=== PATIENT | male | born 1960 | race Caucasian/White ===

== ENCOUNTER 2018-05-09 17:59 | Observation (INO) | payer OTHER ==
[~2018-05-09] VITALS: Ht 177.8 cm; Wt 79.5 kg
[2018-05-09 19:08] LABS: BASOPHILS ABSOLUTE AUTO 0.02 K/mm3 (0.00-0.23); BASOPHILS PERCENT AUTO 0 % (0-2); EOSINOPHILS ABSOLUTE AUTO 0.05 K/mm3 (0.00-0.68); EOSINOPHILS PERCENT AUTO 1 % (0-6); Hematocrit 43.4 % (37.0-53.0); Hemoglobin 13.4 g/dL (13.5-17.5); IMMATURE GRAN ABSOLUTE AUTO 0.01 K/mm3 (0.00-0.10); IMMATURE GRAN PERCENT AUTO 0 % (0-1); LYMPHOCYTES ABSOLUTE AUTO 1.17 K/mm3 (0.84-5.20); LYMPHOCYTES PERCENT AUTO 16 % (21-46); MONOCYTES PERCENT AUTO 5 % (4-13); Mean Corpuscular HGB 28.9 pg (26.0-34.0); Mean Corpuscular HGB Conc 30.9 g/dL (31.5-36.5); Mean Corpuscular Volume 94 fL (80-100); Mean Platelet Volume 11.6 fL (9.1-12.4); NEUTROPHILS ABSOLUTE AUTO 5.84 K/mm3 (1.96-9.15); NEUTROPHILS PERCENT AUTO 78 % (41-73); Platelet Count 230 K/mm3 (150-400); RDW Coefficient Variation 13.3 % (11.7-14.2); RDW Standard Deviation 45.2 fL (35.1-46.3); Red Blood Cell Count 4.64 M/mm3 (4.30-5.90); White Blood Cell Count 7.49 K/mm3 (4.00-11.30)
[2018-05-09] MEDS ORDERED: Lisinopril1 GM MC (19:13)
[2018-05-09] MEDS ORDERED: Lisinopril2.5 MG PO (19:14)
[2018-05-09] MEDS ORDERED: SERT25 PO (19:15)
[2018-05-09] MEDS ORDERED: FURO40 PO (19:15)
[2018-05-09] MEDS ORDERED: BASAGLAR K100 UNIT/1 SC (19:17)
[2018-05-09] MEDS ORDERED: CARV3.125 PO (19:17)
[2018-05-09] MEDS ORDERED: Humalog100 UNIT/1 SC (19:18)
[2018-05-09 19:21] LABS: Alanine Aminotransfer (ALT/SGP 63 U/L (12-78); Albumin, Blood 2.7 g/dL (3.4-5.0); Albumin/Globulin Ratio 0.6 (0.8-1.8); Alk Phos 400 U/L (50-136); Anion Gap 11 mmol/L (6-16); Aspartate Aminotrans (AST/SGOT 33 U/L (12-37); Bilirubin, Total 0.2 mg/dL (0.1-1.0); Blood Urea Nitrogen 19 mg/dL (8-24); Bun/Creatinine Ratio 18.6 (12.0-20.0); CO2, Blood 24 mmol/L (21-32); Calcium, Blood 8.2 mg/dL (8.5-10.1); Chloride, Blood 103 mmol/L (98-108); Creatinine, Blood 1.02 mg/dL (0.60-1.20); Globulin, Blood 4.2 g/dL (2.2-4.0); Glomerular Filtration Rate >60 (60-); Glucose, Blood 372 mg/dL (70-99); Potassium, Blood 4.4 mmol/L (3.5-5.5); Sodium, Blood 138 mmol/L (136-145); Total Protein, Blood 6.9 g/dL (6.4-8.2); Troponin I 0.066 ng/mL (0.000-0.040)
[2018-05-09] MEDS ORDERED: ATOR10 PO (22:06)
[2018-05-09 22:54] LABS: International Normalized Ratio 1.06; Prothrombin Time Results 10.9 Sec (9.7-11.5)
[2018-05-10 06:52] LABS: Hematocrit 39.9 % (37.0-53.0); Hemoglobin 12.5 g/dL (13.5-17.5)
[2018-05-10 07:10] LABS: Anion Gap 7 mmol/L (6-16); Blood Urea Nitrogen 22 mg/dL (8-24); Bun/Creatinine Ratio 20.4 (12.0-20.0); CO2, Blood 30 mmol/L (21-32); Calcium, Blood 8.1 mg/dL (8.5-10.1); Chloride, Blood 107 mmol/L (98-108); Creatinine, Blood 1.08 mg/dL (0.60-1.20); Glomerular Filtration Rate >60 (60-); Glucose, Blood 101 mg/dL (70-99); Potassium, Blood 4.3 mmol/L (3.5-5.5); Sodium, Blood 144 mmol/L (136-145)
[2018-05-10 11:49] LABS: International Normalized Ratio 1.1; Prothrombin Time Results 11.3 Sec (9.7-11.5)
[2018-05-10 14:09] LABS: International Normalized Ratio 1.1; Prothrombin Time Results 11.3 Sec (9.7-11.5)
[2018-05-11 05:36] LABS: International Normalized Ratio 1.44; Prothrombin Time Results 14.5 Sec (9.7-11.5)
[2018-05-11] MEDS ORDERED: ENOX80I SC (12:13)
[2018-05-11] MEDS ORDERED: WARF5 PO (12:14)
== END 2018-05-11 13:00 | disposition home or self-care (01) ==
LOC: ER 17:59 → MEDS 18:00 → ENPENDDIS 05-11 10:00 → MEDS 05-11 13:00
PROVIDERS: Emergency Medicine; Internal Medicine Cardiovascular Disease; Nurse Practitioner Acute Care
DX: R07.9 Chest pain, unspecified (principal); R79.89 Other specified abnormal findings of blood chemistry; R06.02 Shortness of breath; I42.9 Cardiomyopathy, unspecified; E11.9 Type 2 diabetes mellitus without complications; F17.220 Nicotine dependence, chewing tobacco, uncomplicated; Z95.1 Presence of aortocoronary bypass graft; Z79.899 Other long term (current) drug therapy; Z88.8 Allergy status to other drugs, medicaments and biological substances; Z23 Encounter for immunization
CPT/HCPCS: 36415; 71260; 80048; 80053; 82947; 83880; 84484; 85014; 85018; 85025; 85610; 90686; 93005; 93010; 96372; 96374; 96376; 99285-25; C8923; G0378; J1650; J1940; Q9957; Q9967

== ENCOUNTER 2018-07-19 14:10 | Observation (INO) | payer MEDICARE, OTHER ==
[~2018-07-19] VITALS: Ht 177.8 cm; Wt 89.3 kg
[~2018-07-19 14:10] MED LIST: ATOR10 PO; BASAGLAR K100 UNIT/1 SC; CARV3.125 PO; ENOX80I SC; FURO40 PO; Humalog100 UNIT/1 SC; Lisinopril1 GM MC; Lisinopril2.5 MG PO; SERT25 PO; WARF5 PO
[2018-07-19] MEDS ORDERED: INSULANPEN SC (14:46)
[2018-07-19] MEDS ORDERED: ENTRESTO 24 MG1 EACH (14:47)
[2018-07-19 14:57] LABS: BASOPHILS ABSOLUTE AUTO 0.02 K/mm3 (0.00-0.23); BASOPHILS PERCENT AUTO 0 % (0-2); EOSINOPHILS ABSOLUTE AUTO 0.12 K/mm3 (0.00-0.68); EOSINOPHILS PERCENT AUTO 1 % (0-6); Hematocrit 44.9 % (37.0-53.0); IMMATURE GRAN ABSOLUTE AUTO 0.03 K/mm3 (0.00-0.10); IMMATURE GRAN PERCENT AUTO 0 % (0-1); LYMPHOCYTES ABSOLUTE AUTO 1.69 K/mm3 (0.84-5.20); LYMPHOCYTES PERCENT AUTO 20 % (21-46); MONOCYTES ABSOLUTE AUTO 0.52 K/mm3 (0.16-1.47); MONOCYTES PERCENT AUTO 6 % (4-13); Mean Corpuscular HGB 28.2 pg (26.0-34.0); Mean Corpuscular HGB Conc 31.2 g/dL (31.5-36.5); Mean Corpuscular Volume 90 fL (80-100); Mean Platelet Volume 11.4 fL (9.1-12.4); NEUTROPHILS ABSOLUTE AUTO 6.22 K/mm3 (1.96-9.15); NEUTROPHILS PERCENT AUTO 72 % (41-73); Platelet Count 227 K/mm3 (150-400); RDW Coefficient Variation 14.1 % (11.7-14.2); RDW Standard Deviation 46.5 fL (35.1-46.3); Red Blood Cell Count 4.97 M/mm3 (4.30-5.90)
[2018-07-19 15:54] LABS: Alanine Aminotransfer (ALT/SGP 27 U/L (12-78); Albumin, Blood 2.8 g/dL (3.4-5.0); Albumin/Globulin Ratio 0.7 (0.8-1.8); Alk Phos 231 U/L (50-136); Anion Gap 6 mmol/L (6-16); Aspartate Aminotrans (AST/SGOT 25 U/L (12-37); Bilirubin, Total 0.5 mg/dL (0.1-1.0); Blood Urea Nitrogen 23 mg/dL (8-24); Bun/Creatinine Ratio 21.3 (12.0-20.0); CO2, Blood 29 mmol/L (21-32); Calcium, Blood 8.4 mg/dL (8.5-10.1); Chloride, Blood 108 mmol/L (98-108); Creatinine, Blood 1.08 mg/dL (0.60-1.20); Globulin, Blood 4.3 g/dL (2.2-4.0); Glomerular Filtration Rate >60 (60-); Glucose, Blood 110 mg/dL (70-99); Potassium, Blood 4.3 mmol/L (3.5-5.5); Sodium, Blood 143 mmol/L (136-145); Total Protein, Blood 7.1 g/dL (6.4-8.2); Troponin I 0.065 ng/mL (0.000-0.040)
[2018-07-19 16:36] LABS: International Normalized Ratio 2.06; Prothrombin Time Results 20.4 Sec (9.7-11.5)
[2018-07-19 22:27] LABS: Adenovirus Not Detected (NOT DETECT); Bordetella pertussis Not Detected (NOT DETECT); Chlamydophila pneumoniae Not Detected (NOT DETECT); Coronavirus 229E Not Detected (NOT DETECT); Coronavirus HKU1 Not Detected (NOT DETECT); Coronavirus NL63 Not Detected (NOT DETECT); Coronavirus OC43 Not Detected (NOT DETECT); Human Metapneumovirus Not Detected (NOT DETECT); Human Rhinovirus/Enterovirus Not Detected (NOT DETECT); Influenza A Not Detected (NOT DETECT); Influenza A/2009-H1 Not Detected (NOT DETECT); Influenza A/H1 Not Detected (NOT DETECT); Influenza A/H3 Not Detected (NOT DETECT); Influenza B Not Detected (NOT DETECT); Mycoplasma pneumoniae Not Detected (NOT DETECT); Parainfluenza Virus 1 Not Detected (NOT DETECT); Parainfluenza Virus 2 Not Detected (NOT DETECT); Parainfluenza Virus 3 Not Detected (NOT DETECT); Parainfluenza Virus 4 Not Detected (NOT DETECT); Respiratory Syncytial Virus Not Detected (NOT DETECT)
[2018-07-20 03:26] LABS: International Normalized Ratio 1.81
[2018-07-20 03:30] LABS: Anion Gap 7 mmol/L (6-16); Blood Urea Nitrogen 23 mg/dL (8-24); Bun/Creatinine Ratio 23.1 (12.0-20.0); CO2, Blood 27 mmol/L (21-32); Calcium, Blood 8.3 mg/dL (8.5-10.1); Chloride, Blood 108 mmol/L (98-108); Glomerular Filtration Rate >60 (60-); Glucose, Blood 120 mg/dL (70-99); Potassium, Blood 4.1 mmol/L (3.5-5.5); Sodium, Blood 142 mmol/L (136-145)
--- NOTE | 2018-07-20 07:12 | NUR ---
new pt, at bedside, 2L via nc to keep from alarming pulseox, saline locked, call light in reach, walking rounds completed with day shift, denied pain, wanted to know about procedure for going home
[2018-07-20 16:47] LABS: Total Protein, Blood 6.5 g/dL (6.4-8.2)
[2018-07-21 05:19] LABS: International Normalized Ratio 1.58; Prothrombin Time Results 16.1 Sec (9.7-11.5)
--- NOTE | 2018-07-21 07:22 | NUR ---
at side and in bed call light in reach, saline locked, 2L via nc, sbar report given to day shift
[2018-07-21 10:42] LABS: Lactate Dehydrogenase, Body Fl 58 U/L
[2018-07-21] MEDS ORDERED: GABA800 PO (12:52)
[2018-07-21] MEDS ORDERED: ATOR10 PO (12:52)
--- NOTE | 2018-07-21 15:46 | NUR ---
1340 PT DISCHARGED HOME VIA PERSONAL VEHICLE, ACCOMPANIED AND DRIVEN BY . PT AND ESCORTED VIA TWO W/C'S BY THIS RN AND CRYSTAL CALIBRATOR TO FACILITY ENTRANCE. IV REMOVED D/C PAPERWORK REVIEWED WITH PT AND COPY PROVIDED. NEW RX FAXED TO [facility] [address] PER PT REQUEST. PT DISCHARGED ON RA, NO O2 REQUIRED. TOLERATED THORACENESIS WELL. NO NEW CHANGES.
== END 2018-07-21 13:40 | disposition home or self-care (01) ==
LOC: ER 14:10 → MEDS 14:11 → ENPENDDIS 07-21 10:00 → MEDS 07-21 13:40
PROVIDERS: Emergency Medicine; Internal Medicine; Nurse Practitioner Acute Care; ADMIT Internal Medicine
DX: J96.01 Acute respiratory failure with hypoxia (principal); J98.11 Atelectasis; J90 Pleural effusion, not elsewhere classified; I11.0 Hypertensive heart disease with heart failure; I50.22 Chronic systolic (congestive) heart failure; R79.1 Abnormal coagulation profile; I25.10 Atherosclerotic heart disease of native coronary artery without angina pectoris; E11.42 Type 2 diabetes mellitus with diabetic polyneuropathy; F32.9 Major depressive disorder, single episode, unspecified; E78.5 Hyperlipidemia, unspecified; Z79.4 Long term (current) use of insulin; Z79.01 Long term (current) use of anticoagulants; Z86.79 Personal history of other diseases of the circulatory system; Z95.1 Presence of aortocoronary bypass graft; Z79.899 Other long term (current) drug therapy
CPT/HCPCS: 32555; 36415; 71045; 71046; 71260; 80048; 80053; 82947; 83615; 83735; 83880; 84155; 84157; 84484; 85025; 85610; 87070; 87205; 87486; 87581; 87633; 87798; 88108; 93005; 93010; 94761; 94762; 96374; 99285-25; G0378; J1940; Q9967

== ENCOUNTER 2019-08-23 15:10 | Inpatient (IN) | payer OTHER ==
[~2019-08-23] VITALS: Ht 177.8 cm; Wt 93.8 kg
[~2019-08-23 15:10] MED LIST changes: +ENTRESTO 24 MG1 EACH; +GABA800 PO; +INSULANPEN SC
[2019-08-23 15:54] LABS: BASOPHILS ABSOLUTE AUTO 0.06 K/mm3 (0.00-0.23); BASOPHILS PERCENT AUTO 0 % (0-2); EOSINOPHILS ABSOLUTE AUTO 0.01 K/mm3 (0.00-0.68); EOSINOPHILS PERCENT AUTO 0 % (0-6); Hematocrit 38.6 % (37.0-53.0); Hemoglobin 12.9 g/dL (13.5-17.5); IMMATURE GRAN ABSOLUTE AUTO 0.27 K/mm3 (0.00-0.10); IMMATURE GRAN PERCENT AUTO 2 % (0-1); LYMPHOCYTES ABSOLUTE AUTO 0.56 K/mm3 (0.84-5.20); LYMPHOCYTES PERCENT AUTO 4 % (21-46); MONOCYTES ABSOLUTE AUTO 0.47 K/mm3 (0.16-1.47); MONOCYTES PERCENT AUTO 3 % (4-13); Mean Corpuscular HGB 27.9 pg (26.0-34.0); Mean Corpuscular HGB Conc 33.4 g/dL (31.5-36.5); Mean Corpuscular Volume 83 fL (80-100); Mean Platelet Volume 12.7 fL (9.1-12.4); NEUTROPHILS ABSOLUTE AUTO 13.54 K/mm3 (1.96-9.15); NEUTROPHILS PERCENT AUTO 91 % (41-73); Platelet Count 303 K/mm3 (150-400); RDW Coefficient Variation 15.7 % (11.7-14.2); RDW Standard Deviation 47.7 fL (35.1-46.3); Red Blood Cell Count 4.63 M/mm3 (4.30-5.90); White Blood Cell Count 14.91 K/mm3 (4.00-11.30)
[2019-08-23 16:32] LABS: Prothrombin Time Results >90.0 Sec (9.7-11.5)
[2019-08-23 16:33] LABS: International Normalized Ratio No Calc
[2019-08-23 16:38] LABS: Albumin, Blood 2.1 g/dL (3.4-5.0); Albumin/Globulin Ratio 0.4 (0.8-1.8); Bilirubin, Total 4.1 mg/dL (0.1-1.0); Bun/Creatinine Ratio 25.1 (12.0-20.0); Calcium, Blood 8.5 mg/dL (8.5-10.1); Creatinine, Blood 2.79 mg/dL (0.60-1.20); Potassium, Blood 4.2 mmol/L (3.5-5.5); Total Protein, Blood 7.1 g/dL (6.4-8.2)
[2019-08-23] MEDS ORDERED: REPATHA SU140 MG/1 M SC ×2 (18:41)
[2019-08-23] MEDS ORDERED: WARF5 PO ×2 (18:42)
[2019-08-23] MEDS ORDERED: TORSE20 PO ×2 (18:43)
[2019-08-23] MEDS ORDERED: TOPROL XL25 MG PO ×2 (18:43)
[2019-08-23] MEDS ORDERED: SPIR25 PO ×2 (18:43)
[2019-08-23 19:17] LABS: BASOPHILS ABSOLUTE AUTO 0.06 K/mm3 (0.00-0.23); BASOPHILS PERCENT AUTO 0 % (0-2); EOSINOPHILS ABSOLUTE AUTO 0.01 K/mm3 (0.00-0.68); EOSINOPHILS PERCENT AUTO 0 % (0-6); Hematocrit 37.3 % (37.0-53.0); Hemoglobin 12.7 g/dL (13.5-17.5); IMMATURE GRAN ABSOLUTE AUTO 0.25 K/mm3 (0.00-0.10); IMMATURE GRAN PERCENT AUTO 2 % (0-1); LYMPHOCYTES ABSOLUTE AUTO 0.67 K/mm3 (0.84-5.20); LYMPHOCYTES PERCENT AUTO 5 % (21-46); MONOCYTES ABSOLUTE AUTO 0.52 K/mm3 (0.16-1.47); MONOCYTES PERCENT AUTO 4 % (4-13); Mean Corpuscular Volume 82 fL (80-100); Mean Platelet Volume 12.4 fL (9.1-12.4); NEUTROPHILS ABSOLUTE AUTO 12.87 K/mm3 (1.96-9.15); NEUTROPHILS PERCENT AUTO 90 % (41-73); NRBC ABSOLUTE 0.02 K/mm3 (0.00-0.02); NRBC Auto 0.1 /100 WBC (0.0-0.2); Platelet Count 278 K/mm3 (150-400); RDW Coefficient Variation 15.7 % (11.7-14.2); RDW Standard Deviation 47.3 fL (35.1-46.3); Red Blood Cell Count 4.54 M/mm3 (4.30-5.90); White Blood Cell Count 14.38 K/mm3 (4.00-11.30)
[2019-08-23 19:38] LABS: Prothrombin Time Results >90.0 Sec (9.7-11.5)
[2019-08-23 19:57] LABS: International Normalized Ratio No Calc
--- NOTE | 2019-08-23 21:30 | NUR ---
PATIENT REPORTS HE TAKES TORSEMIDE TWICE A DAY; WILL TAKE AN ADDITIONAL DOSE IF HIS LEGS ARE SWOLLEN.
[2019-08-23] MEDS ORDERED: Sulfamethoxazo1 EAC4 PO (21:36)
--- NOTE | 2019-08-23 23:04 | NUR ---
ASSUMED CARE OF PATIENT AT [facility] 1924 FROM ED RN; REPORT WAS CALLED BEFORE SHIFT CHANGE; REPORT WAS GIVEN TO DONALD Newman RN. PATIENT ARRIVED TO UNIT VIA STRETCHER; TRANSFER FROM ED TO PCU STRETCHER SBA; IMPAIRED GAIT DUE TO RIGHT FOOT WOUND. PATIENT REPORTS PAIN IN RIGHT FOOT WHEN STANDING. PATIENT DENIES PAIN, NUMBNESS, TINGLING, DIZZINESS OR NAUSEA. PATIENT HAD TWO IV ABX OVERDUE AND 2UNITS OF FFP TO BE GIVEN. ADMISSION COMPLETE. VSS. NSR ON TELE; OXYGEN SATURATION ABOVE 90% ON ROOM AIR. RIGHT LEG ELEVATED PER ORDER; PHOTO TAKEN OF WOUNDS. CALLED DR. MCCALL AT APPROXIMATELY 2300 TO REPORT PATIENT HAS DEVELOPED COUGH; FINE CRACKLES IN BASES AND O2 DROPPING TO 89 AT TIMES. PATIENT HAS NOT URINATED SINCE THIS AM; [facility] 1956 BNP; LACTIC DECREASING FROM 2.4 TO 2.1. ORDERS TO HOLD NS AT 75 FOR NOW; GIVEN 2MG IV BUMEX AND INSERT CATHETER. AND DAUGHTER AND OTHER FAMILY MEMBERS PRESENT. PATIENT CURRENTLY RESTING IN BED; CALL LIGHT IN REACH; BED IN LOWEST POSISTION; BED ALARM ON; WILL CONTINUE TO MONITOR AND ASSESS UNTIL END OF SHIFT.
--- NOTE | 2019-08-24 | NUR ---
URINARY CATH PLACED; 450 ANABEL FROTHY URINE OUTPUT.
[2019-08-24 00:25] LABS: Source, Urine Catheter
[2019-08-24 00:28] LABS: Blood, Urine 5+ (Neg); Glucose Qualitative, Urine 2+ (Neg); Ketones, Urine Neg (Neg); Leukocyte Esterase, Urine 1+ (Neg); Nitrite, Urine Neg (Neg); Protein, Urine 4+ (Neg); Urobilinogen, Urine 3+ (Normal)
[2019-08-24 00:32] LABS: Appearance, Urine Hazy (Clear); Bilirubin, Urine 2+ (Neg); Color, Urine Amber (P-Yellow)
[2019-08-24 00:37] LABS: Red Blood Cells, Urine 0-2 /hpf (0-2); White Blood Cells, Urine 0-2 /hpf (0-5)
[2019-08-24 00:38] LABS: Bun/Creatinine Ratio 24.8 (12.0-20.0); Calcium, Blood 8.2 mg/dL (8.5-10.1); Creatinine, Blood 2.86 mg/dL (0.60-1.20)
[2019-08-24 00:38] LABS: Amorphous Light (0-Heavy); Bacteria Few /hpf; Hyaline Casts 50-100 /lpf (0-2); Sodium, Urine, Random 14 mmol/L (20-110); Squamous Epithelial Cells Rare /hpf (Few)
[2019-08-24 00:41] LABS: Osmolality, Urine 350 mos/kg (15-1400)
[2019-08-24 04:28] LABS: BASOPHILS ABSOLUTE AUTO 0.08 K/mm3 (0.00-0.23); BASOPHILS PERCENT AUTO 1 % (0-2); EOSINOPHILS ABSOLUTE AUTO 0.07 K/mm3 (0.00-0.68); EOSINOPHILS PERCENT AUTO 1 % (0-6); Hematocrit 36.8 % (37.0-53.0); Hemoglobin 12.3 g/dL (13.5-17.5); IMMATURE GRAN ABSOLUTE AUTO 0.13 K/mm3 (0.00-0.10); IMMATURE GRAN PERCENT AUTO 1 % (0-1); LYMPHOCYTES ABSOLUTE AUTO 0.92 K/mm3 (0.84-5.20); LYMPHOCYTES PERCENT AUTO 7 % (21-46); MONOCYTES ABSOLUTE AUTO 0.69 K/mm3 (0.16-1.47); MONOCYTES PERCENT AUTO 5 % (4-13); Mean Corpuscular HGB 27.8 pg (26.0-34.0); Mean Corpuscular HGB Conc 33.4 g/dL (31.5-36.5); Mean Corpuscular Volume 83 fL (80-100); Mean Platelet Volume 11.8 fL (9.1-12.4); NEUTROPHILS ABSOLUTE AUTO 11.95 K/mm3 (1.96-9.15); NEUTROPHILS PERCENT AUTO 86 % (41-73); NRBC ABSOLUTE 0.04 K/mm3 (0.00-0.02); NRBC Auto 0.3 /100 WBC (0.0-0.2); Platelet Count 262 K/mm3 (150-400); RDW Coefficient Variation 15.9 % (11.7-14.2); RDW Standard Deviation 48.2 fL (35.1-46.3); Red Blood Cell Count 4.42 M/mm3 (4.30-5.90); White Blood Cell Count 13.84 K/mm3 (4.00-11.30)
[2019-08-24 04:45] LABS: Alanine Aminotransfer (ALT/SGP 51 U/L (12-78); Albumin, Blood 1.9 g/dL (3.4-5.0); Albumin/Globulin Ratio 0.4 (0.8-1.8); Alk Phos 880 U/L (50-136); Anion Gap 11 mmol/L (6-16); Aspartate Aminotrans (AST/SGOT 50 U/L (12-37); Bilirubin, Total 3.7 mg/dL (0.1-1.0); Blood Urea Nitrogen 73 mg/dL (8-24); CO2, Blood 22 mmol/L (21-32); Calcium, Blood 8.2 mg/dL (8.5-10.1); Chloride, Blood 93 mmol/L (98-108); Creatinine, Blood 2.81 mg/dL (0.60-1.20); Globulin, Blood 4.7 g/dL (2.2-4.0); Glomerular Filtration Rate 25 (60-); Glucose, Blood 199 mg/dL (70-99); Potassium, Blood 3.8 mmol/L (3.5-5.5); Sodium, Blood 126 mmol/L (136-145); Total Protein, Blood 6.6 g/dL (6.4-8.2); Vancomycin, Random 19.9 ug/mL
--- NOTE | 2019-08-24 06:26 | NUR ---
NO ACUTE CHANGES TO REPORT SINCE LAST NIGHT. PATIENT AMBULATED TO BATHROOM. NPO SINCE ADMIT. VSS. WILL CONTINUE TO MONITOR AND ASSESS UNTIL OF SHIFT.
[2019-08-24 09:11] LABS: International Normalized Ratio 1.93; Prothrombin Time Results 19.9 Sec (9.7-11.5)
[2019-08-24 09:13] LABS: Bun/Creatinine Ratio 26.6 (12.0-20.0); Calcium, Blood 8.2 mg/dL (8.5-10.1); Creatinine, Blood 2.67 mg/dL (0.60-1.20); Potassium, Blood 3.5 mmol/L (3.5-5.5)
[2019-08-24 13:24] LABS: Bun/Creatinine Ratio 27.1 (12.0-20.0); Calcium, Blood 8.3 mg/dL (8.5-10.1); Creatinine, Blood 2.55 mg/dL (0.60-1.20); Potassium, Blood 3.6 mmol/L (3.5-5.5)
--- NOTE | 2019-08-24 13:25 | NUR ---
AWAITING GLUCOSE READING
--- NOTE | 2019-08-24 14:34 | NUR ---
[address] with Dr. Ortiz; he will be in to see the pt this afternoon, he states.
[2019-08-24 17:12] LABS: Bun/Creatinine Ratio 28.3 (12.0-20.0); Calcium, Blood 8.3 mg/dL (8.5-10.1); Creatinine, Blood 2.33 mg/dL (0.60-1.20); Potassium, Blood 3.5 mmol/L (3.5-5.5)
--- NOTE | 2019-08-24 17:51 | NUR ---
History, Chart, Medications and Allergies reviewed before start of procedure.Patient confirms NPO status and agrees with scheduled surgery. VSS. EKG OBTAINED. REPORT GIVEN TO OR NURSE LUIS Fan
--- NOTE | 2019-08-24 18:49 | NUR ---
SHIFT NOTE PT IN DAY SURGERY NOW FOR AMUPATION OF RT LAST TOE. TOE HAD REMAINED UNWRAPPED FOR THIS SHIFT, SLIGHT ODOR WAS NOTED WHEN NOC SHIFT SOCK WAS REMOVED AFTER SOAKING TO REMOVE. ODOR HAS SINCE RESOLVED, TOE HAD DRIED. DR FORD INTO UPDATE PT'S AT THIS TIME, PT REMAINS IN RECOVERY. PT DR FROD PARTIAL REMOVAL OF LAST METATARSAL TOOKPLACE AND WOUND IS HALF OPEN BENEATH DRESSING
--- NOTE | 2019-08-24 19:31 | NUR ---
PT TO ROOM FROM PACU @1999. VSS STABLE. HUNGRY, FOOD PROVIDED PER ORDERS. DRESSING CDI. PT STANDS AND PIVOTS TO BED.
[2019-08-25 05:16] LABS: BASOPHILS ABSOLUTE AUTO 0.08 K/mm3 (0.00-0.23); BASOPHILS PERCENT AUTO 1 % (0-2); EOSINOPHILS PERCENT AUTO 1 % (0-6); Hematocrit 34.1 % (37.0-53.0); Hemoglobin 11.5 g/dL (13.5-17.5); IMMATURE GRAN ABSOLUTE AUTO 0.27 K/mm3 (0.00-0.10); IMMATURE GRAN PERCENT AUTO 2 % (0-1); LYMPHOCYTES ABSOLUTE AUTO 0.77 K/mm3 (0.84-5.20); LYMPHOCYTES PERCENT AUTO 5 % (21-46); MONOCYTES ABSOLUTE AUTO 0.52 K/mm3 (0.16-1.47); MONOCYTES PERCENT AUTO 3 % (4-13); Mean Corpuscular HGB 27.8 pg (26.0-34.0); Mean Corpuscular HGB Conc 33.7 g/dL (31.5-36.5); Mean Corpuscular Volume 83 fL (80-100); Mean Platelet Volume 12.2 fL (9.1-12.4); NEUTROPHILS ABSOLUTE AUTO 13.95 K/mm3 (1.96-9.15); NEUTROPHILS PERCENT AUTO 89 % (41-73); NRBC ABSOLUTE 0.02 K/mm3 (0.00-0.02); NRBC Auto 0.1 /100 WBC (0.0-0.2); Platelet Count 328 K/mm3 (150-400); RDW Coefficient Variation 15.9 % (11.7-14.2); RDW Standard Deviation 47.8 fL (35.1-46.3); Red Blood Cell Count 4.13 M/mm3 (4.30-5.90); White Blood Cell Count 15.69 K/mm3 (4.00-11.30)
--- NOTE | 2019-08-25 05:27 | NUR ---
END OF SHIFT SUMM VSS POS SURGER AND T/O SHIFT. DRESING TO R FOTT CDI. CAP REFILL REMAINS <3 SEC AND PT CONTINUS TO DENY NUMT. PAIN TO R FOOT TO WHICH ELVATION AND MEDICATION HAVE BEEN SUCCESFUL AT REDUCING. PT TOLERATING FOOD WELL. REMAINS AFEBRILE. BRISCOE PATENT AND DAINING, DARK ANABEL COLOR URINE. LUNGS SOUNDS DRY. HAS BEEN AT BEDSIDE T/O SHIFT. WILL CONTINUE TO MONITOR UNTIL SHIFT CHANGE.
[2019-08-25 05:35] LABS: Anion Gap 10 mmol/L (6-16); Blood Urea Nitrogen 63 mg/dL (8-24); Bun/Creatinine Ratio 29.3 (12.0-20.0); CO2, Blood 25 mmol/L (21-32); Calcium, Blood 7.8 mg/dL (8.5-10.1); Chloride, Blood 93 mmol/L (98-108); Creatinine, Blood 2.15 mg/dL (0.60-1.20); Glomerular Filtration Rate 34 (60-); Glucose, Blood 265 mg/dL (70-99); Sodium, Blood 128 mmol/L (136-145); Vancomycin, Random 1.5 ug/mL
[2019-08-25 09:25] LABS: International Normalized Ratio 1.79; Prothrombin Time Results 18.5 Sec (9.7-11.5)
--- NOTE | 2019-08-25 18:19 | NUR ---
SHIFT NOTE PT HAS BEEN RESTING WELL IN BED T/O THE VSS. PT A/O X4. 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 S/O REMAINS SLEEPING AT BEDSIDE. PT HAS BEEN STARTED ON HEPARIN AND COUMADIN TODAY, ALL HAVE BEEN STARTED, PLACED ON BLOOD THINNERS FOR PROPHALAXIS FOR BLOOD CLOTS, NO CLOT WAS NOTED ON ECHO BUT PT HAS RECENT THROMBUS TO CARDIAC APEX. WILL REMAIN ON HEPARIN UNTIL INR IS GREATER THAN 2, CURRENT INR IS 1.79.
[2019-08-25 23:26] LABS: Vancomycin, Random 22.2 ug/mL
--- NOTE | 2019-08-26 06:09 | NUR ---
ENDOF SHIFT SUMMARY NO ACUTE CHANGES THIS SHIFT. VSS. HEPARIN GTT CONTINUES TO INFUSE, TITRATED. NS COTINUES TO INFUSE. PAION MEDS ADMINISTERED FOR PAION IN SURGICAL SITE. ANA REMAINS PATENT, DARKAMBER URINE. OTHERWISE, PT'S SPOUSE IN ROOM T/O NIGHT AND PT HAS BEEN RESTING T/O NIGHT. WILL CONTINUE TO MONITOR UNTUIL SHIFT CHANGE.
[2019-08-26 08:36] LABS: BASOPHILS ABSOLUTE AUTO 0.09 K/mm3 (0.00-0.23); BASOPHILS PERCENT AUTO 1 % (0-2); EOSINOPHILS ABSOLUTE AUTO 0.14 K/mm3 (0.00-0.68); EOSINOPHILS PERCENT AUTO 1 % (0-6); Hemoglobin 11.9 g/dL (13.5-17.5); IMMATURE GRAN ABSOLUTE AUTO 0.83 K/mm3 (0.00-0.10); IMMATURE GRAN PERCENT AUTO 5 % (0-1); LYMPHOCYTES ABSOLUTE AUTO 1.49 K/mm3 (0.84-5.20); LYMPHOCYTES PERCENT AUTO 9 % (21-46); MONOCYTES ABSOLUTE AUTO 0.69 K/mm3 (0.16-1.47); MONOCYTES PERCENT AUTO 4 % (4-13); Mean Corpuscular HGB 27.5 pg (26.0-34.0); Mean Corpuscular HGB Conc 33.1 g/dL (31.5-36.5); Mean Corpuscular Volume 83 fL (80-100); Mean Platelet Volume 11.8 fL (9.1-12.4); NEUTROPHILS ABSOLUTE AUTO 14.03 K/mm3 (1.96-9.15); NEUTROPHILS PERCENT AUTO 81 % (41-73); NRBC ABSOLUTE 0.02 K/mm3 (0.00-0.02); NRBC Auto 0.1 /100 WBC (0.0-0.2); Platelet Count 394 K/mm3 (150-400); RDW Coefficient Variation 16.4 % (11.7-14.2); RDW Standard Deviation 49.3 fL (35.1-46.3); Red Blood Cell Count 4.33 M/mm3 (4.30-5.90); White Blood Cell Count 17.27 K/mm3 (4.00-11.30)
[2019-08-26 08:51] LABS: International Normalized Ratio 2.19; Prothrombin Time Results 22.4 Sec (9.7-11.5)
[2019-08-26 08:55] LABS: Bun/Creatinine Ratio 29.1 (12.0-20.0); Calcium, Blood 7.9 mg/dL (8.5-10.1); Creatinine, Blood 1.41 mg/dL (0.60-1.20); Potassium, Blood 3.6 mmol/L (3.5-5.5)
[2019-08-26 09:08] LABS: Vancomycin, Random 16.6 ug/mL
--- NOTE | 2019-08-26 18:37 | NUR ---
PCU DAYSHIFT NOTE PATIENT ALERT AND ORIENTED X4. AT BEDSIDE, WITH TERMINAL CANCER DX, T/O SHIFT- AIDS IN PATIENT CARE. PATIENT RIGHT FOOT ELEVATED T/O SHIFT - REDNESS, WARM TO TOUCH AND SWELLING WITH INDENTS NOTED TO RIGHT LEG/CALF - MD ABAD NOTIFIED. PATIENT HAD BLE ARTERIAL STUDY COMPELTED . PATIENT MED NO TELE STATUS. RESP E/U ON ROOM AIR. PATIENT HAS BRISCOE CATH IN PLACE, DRAINING ANABEL URINE. NO ACUTE CHANGES T/O SHIFT. WILL CONTINUE TO MONITOR AND GIVE REPORT TO NOC SHIFT RN.
--- NOTE | 2019-08-26 19:43 | NUR ---
RECIEVED HAND OFF FROM Ketan DON RN USING SBAR. TRANSPORTED TO ROOM 220 VIA PCU BED. PCU BED EXCHANGED WITH SURGICAL BED. AAO X3, WEAVER, FOLLOWS ALL COMMANDS. ORIENTED TO ROOM, CALL SYSTEM, AND POC, VOICES UNDERSTANIDNG. PATIENT ALERT AND ORIENTED X4. , DAUGHTER, AND GRANDCHILDREN AT BEDSIDE. RESPIRATIONS EVEN AND UNLABORD ON ROOM AIR. LUNG SOUNDS CLEAR BILTAERALLY. ABDOMEN SOFT AND NONDISTENDED. BOWEL SOUNDS PRESENT IN ALL QUADS. PATIENT RIGHT FOOT ELEVATED ON PILLOWS FOR COMFORT, DRESSING IS C/D/I. REDNESS, WARMTH AND EDEMA WITH INDENTIONS NOTED, MD AWARE. BLE ARTERIAL STUDY COMPELTED BEFORE TX TO SURG. WILL PLACE WOUND VAC PER MD ORDERS. BRISCOE CATH IS PATENT, DRAINING CLEAR ANABEL URINE TO GRAVITY. SAFETY MEASURES IN PLACE. WILL CONTINUE TO MONITOR.
--- NOTE | 2019-08-26 21:14 | NUR ---
PLACED WOUND VAC REMOVED PREVIOUS DRESSING AND PACKING FROM RIGHT LATERAL FOOT. NO DRAINAGE OR ODOR NOTED. PLACED BLACK FOAM AND PACKED INTO WOUND (KATHLEEN+NEWHEW WOUND VAC DOES NOT HAVE WHITE FOAM OR EQUIVELANT) AND COVERED WITH SUCTION WAFER AND SECURED WITH OPTSITE. PLACED ON CONT SUCTION. PT TOLERATED WELL. ELEVATED EXTREMITY.
--- NOTE | 2019-08-27 06:30 | NUR ---
SHIFT SUMMARY HAS RESTED WELL THIS SHIFT. FOOT STILL PROPED ON PILLOW, WOULD VAC IN PLACE AND WORKING PROPERLY. PAIN WELL MANAGED WITH PRN FENTANYL GIVEN X2 THIS SHIFT. HAS DENIED FURTHER DISCOMFORT, OR OTHER NEEDS. SAFETY MEASURES IN PLACE. WILL GIVE HAND OFF TO ONCOMING SHIFT USING SBAR DURING BEDSIDE REPORT.
[2019-08-27 08:47] LABS: BASOPHILS ABSOLUTE AUTO 0.09 K/mm3 (0.00-0.23); BASOPHILS PERCENT AUTO 1 % (0-2); EOSINOPHILS ABSOLUTE AUTO 0.11 K/mm3 (0.00-0.68); EOSINOPHILS PERCENT AUTO 1 % (0-6); Hematocrit 36.4 % (37.0-53.0); Hemoglobin 12.1 g/dL (13.5-17.5); IMMATURE GRAN ABSOLUTE AUTO 0.72 K/mm3 (0.00-0.10); IMMATURE GRAN PERCENT AUTO 4 % (0-1); LYMPHOCYTES ABSOLUTE AUTO 1.35 K/mm3 (0.84-5.20); LYMPHOCYTES PERCENT AUTO 8 % (21-46); MONOCYTES PERCENT AUTO 4 % (4-13); Mean Corpuscular HGB 28.3 pg (26.0-34.0); Mean Corpuscular HGB Conc 33.2 g/dL (31.5-36.5); Mean Corpuscular Volume 85 fL (80-100); Mean Platelet Volume 11.2 fL (9.1-12.4); NEUTROPHILS ABSOLUTE AUTO 14.96 K/mm3 (1.96-9.15); NEUTROPHILS PERCENT AUTO 84 % (41-73); NRBC ABSOLUTE 0.02 K/mm3 (0.00-0.02); NRBC Auto 0.1 /100 WBC (0.0-0.2); Platelet Count 457 K/mm3 (150-400); RDW Standard Deviation 52.3 fL (35.1-46.3); Red Blood Cell Count 4.28 M/mm3 (4.30-5.90); White Blood Cell Count 17.93 K/mm3 (4.00-11.30)
[2019-08-27 09:13] LABS: Bun/Creatinine Ratio 24.6 (12.0-20.0); Calcium, Blood 8.2 mg/dL (8.5-10.1); Creatinine, Blood 1.38 mg/dL (0.60-1.20); Potassium, Blood 3.8 mmol/L (3.5-5.5)
[2019-08-27 10:42] LABS: International Normalized Ratio 2.67
--- NOTE | 2019-08-27 13:06 | NUR ---
08/27/19 Pt gave this rfp writer permission to be involved in care 08/28/19 0600 to 1200
--- NOTE | 2019-08-27 16:29 | NUR ---
SHIFT SUMMARY PT EATING AND DRINKING. PT BEEN ASSISTED WITH ADL'S PRN. PT RACHNA PITTS'Sreedhar RECENTLY. PT REPORTS NOT HAVING BM FOR SEVERAL DAYS. DISCUSSED WITH , SEE ORDERS. PT BEEN MED PRN PAIN. PT BEEN HAVING NAPS OFF AND ON TODAY. PT CONT TO HAVE WOUND VAC IN PLACE. CONSULT WAS CALLED TODAY FOR DR GOODMAN TO HIS OFFICE.
--- NOTE | 2019-08-27 16:37 | NUR ---
STUDENT REQUESTED PERMISSION TO CARE FOR PATIENT ON 08/28/2019. PATIENT AGREES.
--- NOTE | 2019-08-27 17:45 | NUR ---
DR GOODMAN HERE TO SEE PT.
--- NOTE | 2019-08-27 18:26 | NUR ---
DISCUSSED BOWEL CARE. PT REPORTS WILL REQ TO HAVE MIRALAX AT BEDTIME, DOES NOT WANT IT WITH DINNER.
--- NOTE | 2019-08-28 03:56 | NUR ---
SHIFT SUMMARY PT IS A/O X4. PT HAS AMBULATED THIS SHIFT; WBAT. WOUND VAC IN PLACE R FOOT. PT DID HAVE SOME SHORTNESS OF BREATH/ DIFFICULTY GETTING DEEP BREATHS; HOSPITALIST WAS NOTIFIED AND MEDS ORDERED. PT HAS BEEN BREATHING EASIER AFTER BREATHING TREATMENT AND LASIX. PT TOLERATING PO INTAKE, VOIDING, PASSING GAS. NO BM THIS SHIFT. PT GIVEN MIRALAX PER ORDER. ASSISTED WITH ADL'S PRN.
[2019-08-28 05:09] LABS: BASOPHILS ABSOLUTE AUTO 0.08 K/mm3 (0.00-0.23); BASOPHILS PERCENT AUTO 0 % (0-2); EOSINOPHILS ABSOLUTE AUTO 0.13 K/mm3 (0.00-0.68); EOSINOPHILS PERCENT AUTO 1 % (0-6); Hemoglobin 11.3 g/dL (13.5-17.5); IMMATURE GRAN ABSOLUTE AUTO 0.64 K/mm3 (0.00-0.10); IMMATURE GRAN PERCENT AUTO 3 % (0-1); LYMPHOCYTES ABSOLUTE AUTO 1.02 K/mm3 (0.84-5.20); LYMPHOCYTES PERCENT AUTO 5 % (21-46); MONOCYTES PERCENT AUTO 3 % (4-13); Mean Corpuscular HGB 27.9 pg (26.0-34.0); Mean Corpuscular HGB Conc 33.2 g/dL (31.5-36.5); Mean Corpuscular Volume 84 fL (80-100); Mean Platelet Volume 11.2 fL (9.1-12.4); NEUTROPHILS ABSOLUTE AUTO 18.16 K/mm3 (1.96-9.15); NEUTROPHILS PERCENT AUTO 88 % (41-73); Platelet Count 449 K/mm3 (150-400); RDW Coefficient Variation 16.7 % (11.7-14.2); RDW Standard Deviation 50.1 fL (35.1-46.3); Red Blood Cell Count 4.05 M/mm3 (4.30-5.90); White Blood Cell Count 20.63 K/mm3 (4.00-11.30)
[2019-08-28 05:21] LABS: International Normalized Ratio 3.51
[2019-08-28 05:25] LABS: Bun/Creatinine Ratio 25.2 (12.0-20.0); Calcium, Blood 8.1 mg/dL (8.5-10.1); Creatinine, Blood 1.31 mg/dL (0.60-1.20)
--- NOTE | 2019-08-28 11:04 | NUR ---
DR HERNANDEZ HERE TO SEE PT RECENTLY, DISCUSSED PT'S STATUS INCLUDING NAUSEA, BOWEL CARE.
--- NOTE | 2019-08-28 17:00 | NUR ---
SHIFT SUMMARY PT EATING SMALL AMTS, DRINKING, VOIDING. PT BEEN ASSISTED WITH ADL'S PRN. PT UP THIS AFTERNOON IN W/C WITH STUDENT NURSE. PT UP TO CHAIR AFTER THAT. PO WATER INTAKE BEEN ENC. PT REPORTS FEELING THAT HE WILL HAVE BM SOON.
[2019-08-28 20:31] LABS: Albumin, Blood 1.8 g/dL (3.4-5.0); Albumin/Globulin Ratio 0.3 (0.8-1.8); Bilirubin, Direct 6.2 mg/dL (0.0-0.3); Bilirubin, Indirect 0.6 mg/dL (0.1-0.7); Bilirubin, Total 6.8 mg/dL (0.1-1.0); Globulin, Blood 5.6 g/dL (2.2-4.0); Total Protein, Blood 7.4 g/dL (6.4-8.2)
--- NOTE | 2019-08-28 23:27 | NUR ---
PATIENT AND MOVED TO ROOM 210. ALL BELONGINGS MOVED WITH PT. PATIENT'S SKIN IS A NOTICABLE TONE OF YELLOW/ORANGE. FAMILY STATES THAT THIS IS NOT NORMAL. STATED THAT SHE HAD NOT BEEN IN IN THE PAST 2 DAYS AND THAT THIS IS NEW. LABEL MACHINE OPERATOR LOLA RUBALCAVA NOTIFIED OF CHANGES AND LFT's WERE DRAWN. NO OTHER ORDERS AT THIS TIME. PAIN MEDICATION PER EMAR.
[2019-08-29 05:41] LABS: BASOPHILS ABSOLUTE AUTO 0.09 K/mm3 (0.00-0.23); BASOPHILS PERCENT AUTO 0 % (0-2); EOSINOPHILS ABSOLUTE AUTO 0.13 K/mm3 (0.00-0.68); EOSINOPHILS PERCENT AUTO 1 % (0-6); Hematocrit 35.8 % (37.0-53.0); Hemoglobin 11.6 g/dL (13.5-17.5); IMMATURE GRAN ABSOLUTE AUTO 0.67 K/mm3 (0.00-0.10); IMMATURE GRAN PERCENT AUTO 3 % (0-1); LYMPHOCYTES ABSOLUTE AUTO 1.34 K/mm3 (0.84-5.20); LYMPHOCYTES PERCENT AUTO 6 % (21-46); MONOCYTES ABSOLUTE AUTO 0.64 K/mm3 (0.16-1.47); MONOCYTES PERCENT AUTO 3 % (4-13); Mean Corpuscular HGB 27.7 pg (26.0-34.0); Mean Corpuscular HGB Conc 32.4 g/dL (31.5-36.5); Mean Corpuscular Volume 85 fL (80-100); Mean Platelet Volume 11.2 fL (9.1-12.4); NEUTROPHILS ABSOLUTE AUTO 20.58 K/mm3 (1.96-9.15); NEUTROPHILS PERCENT AUTO 88 % (41-73); NRBC ABSOLUTE 0.02 K/mm3 (0.00-0.02); NRBC Auto 0.1 /100 WBC (0.0-0.2); Platelet Count 526 K/mm3 (150-400); RDW Standard Deviation 50.2 fL (35.1-46.3); Red Blood Cell Count 4.19 M/mm3 (4.30-5.90); White Blood Cell Count 23.45 K/mm3 (4.00-11.30)
--- NOTE | 2019-08-29 05:54 | NUR ---
nO ACUTE CHANGES. PATIENT STATED THAT HE SLEPT WELL. IN ROOM ON A COT ALL NIGHT.
[2019-08-29 06:02] LABS: Bun/Creatinine Ratio 22.8 (12.0-20.0); Calcium, Blood 8.4 mg/dL (8.5-10.1); Creatinine, Blood 1.49 mg/dL (0.60-1.20); Potassium, Blood 3.9 mmol/L (3.5-5.5)
[2019-08-29 06:21] LABS: Prothrombin Time Results 40.8 Sec (9.7-11.5)
[2019-08-29 06:45] LABS: International Normalized Ratio 4.13
--- NOTE | 2019-08-29 17:18 | NUR ---
WOUND VAC DRESSING CHANGED TO RIGHT FOOT. 1 PIECE OF BLACK FOAM PLACED. SEAL ACHIEVED. NO ODOR OR DRAINAGE NOTED
--- NOTE | 2019-08-29 17:47 | NUR ---
summary patient denies pain or nause, up in room to chair and ambulating to bathroom. wound vac in place to right foot and maintaining pressure. no drainage in wound vac. patients so at bedside throughout shift
[2019-08-30 02:11] LABS: HBSAG SCREEN Negative (Negative); HEP A AB, IGM Negative (Negative); HEP B CORE AB, IGM Negative (Negative); HEP C VIRUS AB <0.1 (0.0-0.9)
--- NOTE | 2019-08-30 04:14 | NUR ---
SHIFT SUMMARY POD 6 R SMALL TOE AMPUTATION AA0X4, VSS. WOUND VAC ON SET TO 120. NO DRAINAGE IN TUBE. PT C/O PAIN X1 DURING SHIFT. HAS BEEN RESTING IN BED T/O SHIFT. GETTING UP TO VOID IND IN ROOM. TOLERATING PO WELL. IN ROOM DURING SHIFT
[2019-08-30 06:34] LABS: Albumin, Blood 1.7 g/dL (3.4-5.0); Albumin/Globulin Ratio 0.3 (0.8-1.8); Bilirubin, Total 6.3 mg/dL (0.1-1.0); Bun/Creatinine Ratio 24.3 (12.0-20.0); Calcium, Blood 8.5 mg/dL (8.5-10.1); Creatinine, Blood 1.77 mg/dL (0.60-1.20); Globulin, Blood 5.5 g/dL (2.2-4.0); Potassium, Blood 4.6 mmol/L (3.5-5.5); Total Protein, Blood 7.2 g/dL (6.4-8.2)
[2019-08-30 06:44] LABS: International Normalized Ratio 1.37; Prothrombin Time Results 14.4 Sec (9.7-11.5)
--- NOTE | 2019-08-30 18:39 | NUR ---
SUMMARY NO ACUTE CHANGES T/O SHIFT. DR FORD IN TO SEE PT THIS EVENING. WOUND VAC SO CHANGED SO DR STOREY COULD ASSESS. PHOTOS AND MEASUREMENTS TAKEN. IV FLUIDS RUNNING PER ORDERS. CALL LIGHT IN REACH. SO AT BEDSIDE.
--- NOTE | 2019-08-31 04:19 | NUR ---
SHIFT SUMMARY AA0X4, VSS. PT AMBULATING IN ROOM IND. WOUND VAC IN PLACE, FOAM COMPRESSED SET TO 120. PT HAS BEEN RESTING IN BED T/O SHIFT. DID NOT GET MUCH SLEEP PER PT. REPORTS MINIMAL PAIN DURING SHIFT. CALLED INTO PT ROOM DURING SHIFT, PT HAVING RED CLOT OUT OF HIS NOSE. PT REPORTED HAPPENING MULTIPLE TIMES BUT HE DIDNT TELL ANYONE. NO BLEEDING SEEN ELSEWHERE AFTER PASSING THE CLOT. PT VOIDING AND TOLERATING PO WELL.
[2019-08-31 06:14] LABS: BASOPHILS ABSOLUTE AUTO 0.08 K/mm3 (0.00-0.23); BASOPHILS PERCENT AUTO 0 % (0-2); EOSINOPHILS ABSOLUTE AUTO 0.15 K/mm3 (0.00-0.68); EOSINOPHILS PERCENT AUTO 1 % (0-6); Hematocrit 37.5 % (37.0-53.0); Hemoglobin 12.3 g/dL (13.5-17.5); IMMATURE GRAN ABSOLUTE AUTO 0.52 K/mm3 (0.00-0.10); IMMATURE GRAN PERCENT AUTO 2 % (0-1); LYMPHOCYTES ABSOLUTE AUTO 1.71 K/mm3 (0.84-5.20); LYMPHOCYTES PERCENT AUTO 8 % (21-46); MONOCYTES ABSOLUTE AUTO 0.66 K/mm3 (0.16-1.47); MONOCYTES PERCENT AUTO 3 % (4-13); Mean Corpuscular HGB 28.7 pg (26.0-34.0); Mean Corpuscular HGB Conc 32.8 g/dL (31.5-36.5); Mean Corpuscular Volume 87 fL (80-100); Mean Platelet Volume 10.7 fL (9.1-12.4); NEUTROPHILS ABSOLUTE AUTO 18.41 K/mm3 (1.96-9.15); NEUTROPHILS PERCENT AUTO 86 % (41-73); NRBC ABSOLUTE 0.05 K/mm3 (0.00-0.02); NRBC Auto 0.2 /100 WBC (0.0-0.2); Platelet Count 630 K/mm3 (150-400); RDW Coefficient Variation 18.6 % (11.7-14.2); RDW Standard Deviation 52.7 fL (35.1-46.3); Red Blood Cell Count 4.29 M/mm3 (4.30-5.90); White Blood Cell Count 21.53 K/mm3 (4.00-11.30)
[2019-08-31 06:27] LABS: International Normalized Ratio 1.27; Prothrombin Time Results 13.4 Sec (9.7-11.5)
[2019-08-31 06:53] LABS: Albumin, Blood 1.8 g/dL (3.4-5.0); Albumin/Globulin Ratio 0.3 (0.8-1.8); Bilirubin, Total 5.9 mg/dL (0.1-1.0); Bun/Creatinine Ratio 24.6 (12.0-20.0); Calcium, Blood 8.9 mg/dL (8.5-10.1); Creatinine, Blood 1.83 mg/dL (0.60-1.20); Potassium, Blood 3.7 mmol/L (3.5-5.5); Total Protein, Blood 7.8 g/dL (6.4-8.2)
[2019-08-31] MEDS ORDERED: SENN187 PO ×2 (11:18)
[2019-08-31] MEDS ORDERED: ATOR20 PO ×2 (11:19)
--- NOTE | 2019-08-31 14:32 | NUR ---
1420 discharged to home accompaned by nette.wound vac in place and maintaining seal
[2019-10-03] MEDS ORDERED: TRIA15CR3 TOP (15:43)
[2019-10-03] MEDS ORDERED: NITR.4SL SL (15:43)
[2019-10-03] MEDS ORDERED: ZOFRAN8 MG PO (15:44)
[2019-10-03] MEDS ORDERED: Norco 5-325 Ta1 EACH PO (15:45)
== END 2019-08-31 14:16 | disposition home or self-care (01) | DRG 853 ==
LOC: ER 15:10 → SURS 17:53 → PCU 17:53 → SURS 08-26 19:43
PROVIDERS: Hospitalist; Internal Medicine; Nurse Practitioner Acute Care; Pharmacist; Physician Assistant; Podiatrist; ADMIT Internal Medicine
PROC: 0Y6X0Z0 Detachment at Right 5th Toe, Complete, Open Approach (ICD-10-PCS; principal; 2019-08-24 12:00)
DX: A41.9 Sepsis, unspecified organism (principal); I50.43 Acute on chronic combined systolic (congestive) and diastolic (congestive) heart failure; E87.1 Hypo-osmolality and hyponatremia; I50.40 Unspecified combined systolic (congestive) and diastolic (congestive) heart failure; I13.0 Hypertensive heart and chronic kidney disease with heart failure and stage 1 through stage 4 chronic kidney disease, or unspecified chronic kidney disease; E11.52 Type 2 diabetes mellitus with diabetic peripheral angiopathy with gangrene; E11.40 Type 2 diabetes mellitus with diabetic neuropathy, unspecified; I25.10 Atherosclerotic heart disease of native coronary artery without angina pectoris; E78.5 Hyperlipidemia, unspecified; Z95.1 Presence of aortocoronary bypass graft; E88.09 Other disorders of plasma-protein metabolism, not elsewhere classified; F17.220 Nicotine dependence, chewing tobacco, uncomplicated; R65.20 Severe sepsis without septic shock; F32.9 Major depressive disorder, single episode, unspecified; E11.22 Type 2 diabetes mellitus with diabetic chronic kidney disease; N28.1 Cyst of kidney, acquired; K75.81 Nonalcoholic steatohepatitis (NASH); Z79.4 Long term (current) use of insulin; Z79.01 Long term (current) use of anticoagulants; N18.3 Chronic kidney disease, stage 3 (moderate)
CPT/HCPCS: 36415; 36430; 51702; 73700; 74160; 76705; 80048; 80053; 80074; 80076; 80202; 81001; 82947; 82977; 83605; 83880; 83930; 83935; 84300; 84550; 84560; 85025; 85610; 85651; 85730; 86140; 86900; 86901; 87040; 87071; 87075; 87076; 87147; 87205; 88305; 88311; 93005; 93010; 93925; 94640; 94760; 96365; 99285-25; A9270; A9270-GY; J1644; J1815; J1940; J2405; J2543; J2704; J3010; J3370; J3430; J7030; J7040; J7050; J7120; P9059; Q9967

== ENCOUNTER → 2019-09-10 | Outpatient (CLI) | payer OTHER ==
[~2019-09-10] MED LIST changes: +ATOR20 PO; +REPATHA SU140 MG/1 M SC; +SENN187 PO; +SPIR25 PO; +Sulfamethoxazo1 EAC4 PO; +TOPROL XL25 MG PO; +TORSE20 PO
[2019-09-10 18:01] LABS: Hematocrit 39.6 % (37.0-53.0); Hemoglobin 12.2 g/dL (13.5-17.5)
[2019-09-10 18:16] LABS: International Normalized Ratio 3.93; Prothrombin Time Results 38.9 Sec (9.7-11.5)
[2019-09-10 18:43] LABS: Anion Gap 4 mmol/L (6-16); Blood Urea Nitrogen 41 mg/dL (8-24); Bun/Creatinine Ratio 23.7 (12.0-20.0); CO2, Blood 29 mmol/L (21-32); Calcium, Blood 8.5 mg/dL (8.5-10.1); Chloride, Blood 103 mmol/L (98-108); Creatinine, Blood 1.73 mg/dL (0.60-1.20); Glomerular Filtration Rate 43 (60-); Glucose, Blood 243 mg/dL (70-99); Phosphorus, Blood 3.6 mg/dL (2.5-4.9); Potassium, Blood 4.1 mmol/L (3.5-5.5); Sodium, Blood 136 mmol/L (136-145)
== END | disposition home or self-care (01) ==
LOC: LAB 17:12 → LAB SHORT 17:12
PROVIDERS: Internal Medicine; Internal Medicine Cardiovascular Disease
DX: N18.3 Chronic kidney disease, stage 3 (moderate) (principal); I25.5 Ischemic cardiomyopathy
CPT/HCPCS: 36415; 80069; 85014; 85018; 85610

== ENCOUNTER 2019-09-11 02:59 | Emergency (ER) | payer OTHER ==
[~2019-09-11] VITALS: Ht 177.8 cm; Wt 95.2 kg
== END 2019-09-11 05:52 | disposition home or self-care (01) ==
LOC: ER 02:59
DX: S81.801A Unspecified open wound, right lower leg, initial encounter (principal); Z48.00 Encounter for change or removal of nonsurgical wound dressing; I50.9 Heart failure, unspecified; E11.9 Type 2 diabetes mellitus without complications; Z79.899 Other long term (current) drug therapy; Z79.4 Long term (current) use of insulin
CPT/HCPCS: 99282

== ENCOUNTER 2019-10-04 07:50 | Day surgery (SDC) | payer OTHER ==
[~2019-10-04] VITALS: Ht 177.8 cm; Wt 102.0 kg
[~2019-10-04 07:50] MED LIST changes: +NITR.4SL SL; +Norco 5-325 Ta1 EACH PO; +TRIA15CR3 TOP; +ZOFRAN8 MG PO
[2019-10-04 09:00] LABS: BASOPHILS ABSOLUTE AUTO 0.04 K/mm3 (0.00-0.23); BASOPHILS PERCENT AUTO 0 % (0-2); EOSINOPHILS ABSOLUTE AUTO 0.15 K/mm3 (0.00-0.68); EOSINOPHILS PERCENT AUTO 2 % (0-6); Hematocrit 42.1 % (37.0-53.0); Hemoglobin 12.9 g/dL (13.5-17.5); IMMATURE GRAN ABSOLUTE AUTO 0.02 K/mm3 (0.00-0.10); IMMATURE GRAN PERCENT AUTO 0 % (0-1); LYMPHOCYTES PERCENT AUTO 12 % (21-46); MONOCYTES ABSOLUTE AUTO 0.63 K/mm3 (0.16-1.47); MONOCYTES PERCENT AUTO 7 % (4-13); Mean Corpuscular HGB 28.7 pg (26.0-34.0); Mean Corpuscular HGB Conc 30.6 g/dL (31.5-36.5); Mean Platelet Volume 10.3 fL (9.1-12.4); NEUTROPHILS ABSOLUTE AUTO 7.31 K/mm3 (1.96-9.15); NEUTROPHILS PERCENT AUTO 79 % (41-73); Platelet Count 403 K/mm3 (150-400); RDW Coefficient Variation 17.7 % (11.7-14.2); RDW Standard Deviation 60.8 fL (35.1-46.3); White Blood Cell Count 9.25 K/mm3 (4.00-11.30)
[2019-10-04 09:01] LABS: Mean Corpuscular Volume 94 fL (80-100)
[2019-10-04 09:12] LABS: Bun/Creatinine Ratio 22.6 (12.0-20.0); Calcium, Blood 8.5 mg/dL (8.5-10.1); Creatinine, Blood 1.64 mg/dL (0.60-1.20); Potassium, Blood 3.5 mmol/L (3.5-5.5)
[2019-10-04 09:21] LABS: International Normalized Ratio 1.78; Prothrombin Time Results 18.4 Sec (9.7-11.5)
--- NOTE | 2019-10-04 14:30 | NUR ---
9523 PATIENT RECEIVED BACK TO THE RECOVERY ROOM. HEMOSTASIS NOTED TO THE LEFT GROIN @ 1415. CONTINUE TO MONITOR. LUNCH TRAY SERVED. PATIENT REMAINS SUPINE AND FEEDING SELF. NO C/O PAIN. PULSES ALL NOTED BY DOPPLER.
[2019-10-04] MEDS ORDERED: CLOP75 PO (14:37)
--- NOTE | 2019-10-04 14:45 | NUR ---
PT LEFT GROIN SITE APPEARS STABLE, SOFT NON TENDER WITH NO ACTIVE BLEEDING, OOZING, OR PAIN. PT AOX4. SPOKE WITH PT'S , UPDATED ON PLANNED TIME FOR DISCHARGE TO HOME. PT PROVIDED WITH LUNCH TRAY, TOLERATES PO FLUIDS/FOOD WITH NO DIFFICULTY. REMAINS SUPINE ON GURNEY WHICH IS IN REVERSE TRENDELENBERG POSITION. HOB AT 30 DEGREES. VSS. CALL LIGHT IN REACH.
--- NOTE | 2019-10-04 14:54 | NUR ---
1454 PRESCRIPTION CALLED INTO THE PHARMACY, [facility] FOR PLAVIX 75 MG PO Q DAY. DOSE GIVEN TO PATIENT TODAY ORDERED BY DR. GOODMAN.
--- NOTE | 2019-10-04 17:26 | NUR ---
PT VERBALIZED UNDERSTANDING OF D/C INSTRUCTIONS. LEFT GROIN SITE STABLE, DRESSING C/D/I. ARTERIAL SITE SOFT NON TENDER WITH NO ACTIVE BLEEDING, OOZING, OR PAIN NOTED. IV REMOVED FROM RAC WITH CATH INTACT, PRESSURE DRESSING APPLIED. PT ABLE TO GET SELF DRESSED WITH LIMITED ASSISTANCE. DISPO PAPERWORK PROVIDED TO PT TO TAKE HOME, FAMILY ARRIVES TO DRIVE PT HOME. TAKEN OUT TO PRIVATE VEHICLE VIA W/C. NADN AT TIME OF DISCHARGE. ENCOURAGED TO FOLLOW UP WITH PROVIDER NEEDED.
== END 2019-10-04 23:53 | disposition home or self-care (01) ==
LOC: MHTC 07:50
PROVIDERS: Radiology Diagnostic Radiology
DX: I70.261 Atherosclerosis of native arteries of extremities with gangrene, right leg (principal); L97.919 Non-pressure chronic ulcer of unspecified part of right lower leg with unspecified severity; Z88.8 Allergy status to other drugs, medicaments and biological substances; Z79.01 Long term (current) use of anticoagulants; Z79.4 Long term (current) use of insulin
CPT/HCPCS: 36415; 37224; 37228; 37232; 75625; 75716; 75774; 80048; 82947; 85025; 85347; 85610; 99152; 99153; A9270-GY; C1725; C1760; C1769; C1887; C1894; C2623; J1644; J2250; J3010; J7030; J7042; Q9967

== ENCOUNTER 2019-10-07 18:08 | Emergency (ER) | payer OTHER ==
[~2019-10-07] VITALS: Ht 177.8 cm; Wt 104.3 kg
[~2019-10-07 18:08] MED LIST changes: +CLOP75 PO
[2019-10-07] MEDS ORDERED: Sulfamethoxazo1 EAC1 PO (18:34)
[2019-10-07 19:26] LABS: BASOPHILS ABSOLUTE AUTO 0.04 K/mm3 (0.00-0.23); BASOPHILS PERCENT AUTO 0 % (0-2); EOSINOPHILS ABSOLUTE AUTO 0.19 K/mm3 (0.00-0.68); EOSINOPHILS PERCENT AUTO 2 % (0-6); Hematocrit 44.3 % (37.0-53.0); Hemoglobin 13.6 g/dL (13.5-17.5); IMMATURE GRAN ABSOLUTE AUTO 0.03 K/mm3 (0.00-0.10); IMMATURE GRAN PERCENT AUTO 0 % (0-1); LYMPHOCYTES ABSOLUTE AUTO 1.18 K/mm3 (0.84-5.20); LYMPHOCYTES PERCENT AUTO 11 % (21-46); MONOCYTES ABSOLUTE AUTO 0.58 K/mm3 (0.16-1.47); MONOCYTES PERCENT AUTO 6 % (4-13); Mean Corpuscular HGB 28.2 pg (26.0-34.0); Mean Corpuscular HGB Conc 30.7 g/dL (31.5-36.5); Mean Corpuscular Volume 92 fL (80-100); Mean Platelet Volume 10.7 fL (9.1-12.4); NEUTROPHILS ABSOLUTE AUTO 8.49 K/mm3 (1.96-9.15); NEUTROPHILS PERCENT AUTO 81 % (41-73); Platelet Count 361 K/mm3 (150-400); RDW Coefficient Variation 17.2 % (11.7-14.2); RDW Standard Deviation 58.6 fL (35.1-46.3); Red Blood Cell Count 4.82 M/mm3 (4.30-5.90); White Blood Cell Count 10.51 K/mm3 (4.00-11.30)
[2019-10-07 19:41] LABS: International Normalized Ratio 1.26; Prothrombin Time Results 13.3 Sec (9.7-11.5)
[2019-10-07 19:46] LABS: Albumin, Blood 2.2 g/dL (3.4-5.0); Albumin/Globulin Ratio 0.4 (0.8-1.8); Bilirubin, Total 1.1 mg/dL (0.1-1.0); Bun/Creatinine Ratio 23.7 (12.0-20.0); Calcium, Blood 8.9 mg/dL (8.5-10.1); Creatinine, Blood 2.07 mg/dL (0.60-1.20); Globulin, Blood 5.9 g/dL (2.2-4.0); Magnesium, Blood 2.5 mg/dL (1.6-2.4); Potassium, Blood 4.7 mmol/L (3.5-5.5); Total Protein, Blood 8.1 g/dL (6.4-8.2)
[2019-10-07] MEDS ORDERED: METO2.5 PO (20:17)
== END 2019-10-07 22:32 | disposition home or self-care (01) ==
LOC: ER 18:08
PROVIDERS: Emergency Medicine
DX: R60.1 Generalized edema (principal); E11.42 Type 2 diabetes mellitus with diabetic polyneuropathy; I11.0 Hypertensive heart disease with heart failure; I50.9 Heart failure, unspecified; E78.5 Hyperlipidemia, unspecified; I25.810 Atherosclerosis of coronary artery bypass graft(s) without angina pectoris; F17.220 Nicotine dependence, chewing tobacco, uncomplicated; Z79.01 Long term (current) use of anticoagulants; Z79.899 Other long term (current) drug therapy; Z79.4 Long term (current) use of insulin
CPT/HCPCS: 71045; 80053; 83735; 83880; 85025; 85610; 96374; 99283-25; J1940

== ENCOUNTER 2019-10-16 08:27 | Emergency (ER) | payer OTHER ==
[~2019-10-16] VITALS: Ht 177.8 cm; Wt 99.8 kg
[~2019-10-16 08:27] MED LIST changes: +METO2.5 PO; +Sulfamethoxazo1 EAC1 PO
[2019-10-16 10:18] LABS: International Normalized Ratio 3.23; Prothrombin Time Results 32.3 Sec (9.7-11.5)
== END 2019-10-16 11:35 | disposition home or self-care (01) ==
LOC: ER 08:27
PROVIDERS: Physician Assistant
DX: R04.0 Epistaxis (principal); E11.42 Type 2 diabetes mellitus with diabetic polyneuropathy; E78.5 Hyperlipidemia, unspecified; F17.220 Nicotine dependence, chewing tobacco, uncomplicated; I25.810 Atherosclerosis of coronary artery bypass graft(s) without angina pectoris; I11.0 Hypertensive heart disease with heart failure; I50.9 Heart failure, unspecified; Z79.01 Long term (current) use of anticoagulants; Z79.4 Long term (current) use of insulin; Z79.899 Other long term (current) drug therapy
CPT/HCPCS: 85610; 99283

== ENCOUNTER 2019-10-26 01:21 | Emergency (ER) | payer OTHER ==
[~2019-10-26] VITALS: Ht 177.8 cm; Wt 92.1 kg
== END 2019-10-26 02:43 | disposition home or self-care (01) ==
LOC: ER 01:21
DX: Z47.81 Encounter for orthopedic aftercare following surgical amputation (principal); Z89.421 Acquired absence of other right toe(s); E11.9 Type 2 diabetes mellitus without complications; I50.9 Heart failure, unspecified
CPT/HCPCS: 99283

== ENCOUNTER 2019-11-05 00:19 | Day surgery (SDC) | payer OTHER ==
[~2019-11-05 00:19] MED LIST changes: +AMOCLA875 PO; +HYDR1TAB94 PO
== END 2019-11-05 11:03 | disposition home or self-care (01) ==
LOC: ATC 00:19
DX: E11.621 Type 2 diabetes mellitus with foot ulcer (principal); L97.514 Non-pressure chronic ulcer of other part of right foot with necrosis of bone; M86.171 Other acute osteomyelitis, right ankle and foot; E11.52 Type 2 diabetes mellitus with diabetic peripheral angiopathy with gangrene; I10 Essential (primary) hypertension; E78.5 Hyperlipidemia, unspecified; F32.9 Major depressive disorder, single episode, unspecified; Z79.4 Long term (current) use of insulin; Z79.01 Long term (current) use of anticoagulants; Z79.2 Long term (current) use of antibiotics; Z79.899 Other long term (current) drug therapy
CPT/HCPCS: J1335

== ENCOUNTER 2019-11-07 00:05 | Day surgery (SDC) | payer OTHER | END 2019-11-07 09:53 | disposition home or self-care (01) | LOC: ATC 00:05 | DX: E11.69 Type 2 diabetes mellitus with other specified complication (principal); E11.621 Type 2 diabetes mellitus with foot ulcer; M86.171 Other acute osteomyelitis, right ankle and foot; L97.514 Non-pressure chronic ulcer of other part of right foot with necrosis of bone; E11.52 Type 2 diabetes mellitus with diabetic peripheral angiopathy with gangrene; Z79.899 Other long term (current) drug therapy; Z89.421 Acquired absence of other right toe(s) | CPT/HCPCS: 96365; J1335 ==

== ENCOUNTER 2019-11-08 00:12 | Day surgery (SDC) | payer OTHER | END 2019-11-08 12:00 | disposition home or self-care (01) | LOC: ATC 00:12 | DX: E11.69 Type 2 diabetes mellitus with other specified complication (principal); E11.621 Type 2 diabetes mellitus with foot ulcer; M86.171 Other acute osteomyelitis, right ankle and foot; L97.514 Non-pressure chronic ulcer of other part of right foot with necrosis of bone; E11.52 Type 2 diabetes mellitus with diabetic peripheral angiopathy with gangrene; I10 Essential (primary) hypertension; Z89.421 Acquired absence of other right toe(s); Z79.899 Other long term (current) drug therapy; Z79.02 Long term (current) use of antithrombotics/antiplatelets; Z79.01 Long term (current) use of anticoagulants | CPT/HCPCS: 96365; J1335 ==

== ENCOUNTER 2019-11-09 00:11 | Day surgery (SDC) | payer OTHER | END 2019-11-09 11:55 | disposition home or self-care (01) | LOC: ATC 00:11 | DX: E11.52 Type 2 diabetes mellitus with diabetic peripheral angiopathy with gangrene (principal); L97.514 Non-pressure chronic ulcer of other part of right foot with necrosis of bone; M86.171 Other acute osteomyelitis, right ankle and foot; Z79.01 Long term (current) use of anticoagulants; Z79.899 Other long term (current) drug therapy; Z88.8 Allergy status to other drugs, medicaments and biological substances; Z79.02 Long term (current) use of antithrombotics/antiplatelets | CPT/HCPCS: J1335 ==

== ENCOUNTER 2019-11-10 01:09 | Day surgery (SDC) | payer OTHER | END 2019-11-10 11:20 | disposition home or self-care (01) | LOC: ATC 01:09 | DX: E11.52 Type 2 diabetes mellitus with diabetic peripheral angiopathy with gangrene (principal); L97.514 Non-pressure chronic ulcer of other part of right foot with necrosis of bone; M86.171 Other acute osteomyelitis, right ankle and foot; F32.9 Major depressive disorder, single episode, unspecified; E78.5 Hyperlipidemia, unspecified; Z79.01 Long term (current) use of anticoagulants; Z79.899 Other long term (current) drug therapy; Z88.8 Allergy status to other drugs, medicaments and biological substances; E66.9 Obesity, unspecified; Z68.28 Body mass index [BMI] 28.0-28.9, adult; Z79.02 Long term (current) use of antithrombotics/antiplatelets | CPT/HCPCS: J1335 ==

== ENCOUNTER 2019-11-12 00:18 | Day surgery (SDC) | payer OTHER | END 2019-11-12 11:40 | disposition home or self-care (01) | LOC: ATC 00:18 | DX: E11.52 Type 2 diabetes mellitus with diabetic peripheral angiopathy with gangrene (principal); L97.514 Non-pressure chronic ulcer of other part of right foot with necrosis of bone; M86.171 Other acute osteomyelitis, right ankle and foot; I10 Essential (primary) hypertension; E78.5 Hyperlipidemia, unspecified; F32.9 Major depressive disorder, single episode, unspecified; E66.9 Obesity, unspecified; Z68.28 Body mass index [BMI] 28.0-28.9, adult; Z88.8 Allergy status to other drugs, medicaments and biological substances; Z79.01 Long term (current) use of anticoagulants; Z79.899 Other long term (current) drug therapy; Z79.4 Long term (current) use of insulin | CPT/HCPCS: J1335 ==

== ENCOUNTER 2019-11-13 00:07 | Day surgery (SDC) | payer OTHER ==
[2019-11-13 12:29] LABS: BASOPHILS ABSOLUTE AUTO 0.03 K/mm3 (0.00-0.23); BASOPHILS PERCENT AUTO 1 % (0-2); EOSINOPHILS ABSOLUTE AUTO 0.16 K/mm3 (0.00-0.68); EOSINOPHILS PERCENT AUTO 3 % (0-6); Hematocrit 37.8 % (37.0-53.0); Hemoglobin 11.6 g/dL (13.5-17.5); IMMATURE GRAN ABSOLUTE AUTO 0.02 K/mm3 (0.00-0.10); IMMATURE GRAN PERCENT AUTO 0 % (0-1); LYMPHOCYTES ABSOLUTE AUTO 0.97 K/mm3 (0.84-5.20); LYMPHOCYTES PERCENT AUTO 15 % (21-46); MONOCYTES ABSOLUTE AUTO 0.41 K/mm3 (0.16-1.47); MONOCYTES PERCENT AUTO 6 % (4-13); Mean Corpuscular HGB 26.3 pg (26.0-34.0); Mean Corpuscular HGB Conc 30.7 g/dL (31.5-36.5); Mean Corpuscular Volume 86 fL (80-100); Mean Platelet Volume 11.3 fL (9.1-12.4); NEUTROPHILS ABSOLUTE AUTO 4.88 K/mm3 (1.96-9.15); NEUTROPHILS PERCENT AUTO 75 % (41-73); Platelet Count 314 K/mm3 (150-400); RDW Standard Deviation 51.1 fL (35.1-46.3); Red Blood Cell Count 4.41 M/mm3 (4.30-5.90); White Blood Cell Count 6.47 K/mm3 (4.00-11.30)
[2019-11-13 12:42] LABS: C-REACTIVE PROTEIN, EXT RANGE <0.290 mg/dL (0.000-0.300)
[2019-11-13 12:45] LABS: Alanine Aminotransfer (ALT/SGP 22 U/L (12-78); Albumin, Blood 2.6 g/dL (3.4-5.0); Albumin/Globulin Ratio 0.5 (0.8-1.8); Alk Phos 224 U/L (50-136); Anion Gap 5 mmol/L (6-16); Aspartate Aminotrans (AST/SGOT 27 U/L (12-37); Bilirubin, Total 0.5 mg/dL (0.1-1.0); Blood Urea Nitrogen 55 mg/dL (8-24); Bun/Creatinine Ratio 26.4 (12.0-20.0); CO2, Blood 33 mmol/L (21-32); Calcium, Blood 8.7 mg/dL (8.5-10.1); Chloride, Blood 97 mmol/L (98-108); Creatinine, Blood 2.08 mg/dL (0.60-1.20); Globulin, Blood 4.9 g/dL (2.2-4.0); Glomerular Filtration Rate 35 (60-); Glucose, Blood 458 mg/dL (70-99); Potassium, Blood 3.5 mmol/L (3.5-5.5); Sodium, Blood 135 mmol/L (136-145); Total Protein, Blood 7.5 g/dL (6.4-8.2)
== END 2019-11-13 11:55 | disposition home or self-care (01) ==
LOC: ATC 00:07
PROVIDERS: Podiatrist
DX: E11.52 Type 2 diabetes mellitus with diabetic peripheral angiopathy with gangrene (principal); E11.621 Type 2 diabetes mellitus with foot ulcer; L97.514 Non-pressure chronic ulcer of other part of right foot with necrosis of bone; M86.171 Other acute osteomyelitis, right ankle and foot; I10 Essential (primary) hypertension; E78.5 Hyperlipidemia, unspecified; F32.9 Major depressive disorder, single episode, unspecified; Z89.421 Acquired absence of other right toe(s); Z79.01 Long term (current) use of anticoagulants; Z79.899 Other long term (current) drug therapy; Z88.8 Allergy status to other drugs, medicaments and biological substances
CPT/HCPCS: 80053; 85025; 85651; 86140; 96365; J1335

== ENCOUNTER 2019-11-15 00:09 | Day surgery (SDC) | payer OTHER | END 2019-11-15 23:50 | disposition home or self-care (01) | LOC: ATC 00:09 | DX: E11.52 Type 2 diabetes mellitus with diabetic peripheral angiopathy with gangrene (principal); L97.514 Non-pressure chronic ulcer of other part of right foot with necrosis of bone; M86.171 Other acute osteomyelitis, right ankle and foot; I10 Essential (primary) hypertension; E78.5 Hyperlipidemia, unspecified; F32.9 Major depressive disorder, single episode, unspecified; Z79.01 Long term (current) use of anticoagulants; Z79.899 Other long term (current) drug therapy; Z79.02 Long term (current) use of antithrombotics/antiplatelets; Z88.8 Allergy status to other drugs, medicaments and biological substances ==

== ENCOUNTER 2019-11-20 00:15 | Day surgery (SDC) | payer OTHER ==
[2019-11-20 11:53] LABS: BASOPHILS ABSOLUTE AUTO 0.02 K/mm3 (0.00-0.23); BASOPHILS PERCENT AUTO 0 % (0-2); EOSINOPHILS ABSOLUTE AUTO 0.16 K/mm3 (0.00-0.68); EOSINOPHILS PERCENT AUTO 2 % (0-6); Hematocrit 35.8 % (37.0-53.0); Hemoglobin 11.2 g/dL (13.5-17.5); IMMATURE GRAN ABSOLUTE AUTO 0.02 K/mm3 (0.00-0.10); IMMATURE GRAN PERCENT AUTO 0 % (0-1); LYMPHOCYTES PERCENT AUTO 15 % (21-46); MONOCYTES ABSOLUTE AUTO 0.54 K/mm3 (0.16-1.47); MONOCYTES PERCENT AUTO 7 % (4-13); Mean Corpuscular HGB 26.4 pg (26.0-34.0); Mean Corpuscular HGB Conc 31.3 g/dL (31.5-36.5); Mean Corpuscular Volume 84 fL (80-100); Mean Platelet Volume 12.5 fL (9.1-12.4); NEUTROPHILS ABSOLUTE AUTO 6.17 K/mm3 (1.96-9.15); NEUTROPHILS PERCENT AUTO 76 % (41-73); Platelet Count 240 K/mm3 (150-400); RDW Coefficient Variation 16.2 % (11.7-14.2); RDW Standard Deviation 50.2 fL (35.1-46.3); Red Blood Cell Count 4.24 M/mm3 (4.30-5.90); White Blood Cell Count 8.11 K/mm3 (4.00-11.30)
[2019-11-20 12:13] LABS: Alanine Aminotransfer (ALT/SGP 28 U/L (12-78); Albumin, Blood 2.9 g/dL (3.4-5.0); Albumin/Globulin Ratio 0.6 (0.8-1.8); Alk Phos 196 U/L (50-136); Anion Gap 6 mmol/L (6-16); Aspartate Aminotrans (AST/SGOT 26 U/L (12-37); Bilirubin, Total 0.6 mg/dL (0.1-1.0); Blood Urea Nitrogen 45 mg/dL (8-24); Bun/Creatinine Ratio 29.6 (12.0-20.0); C-REACTIVE PROTEIN, EXT RANGE <0.290 mg/dL (0.000-0.300); CO2, Blood 29 mmol/L (21-32); Calcium, Blood 8.8 mg/dL (8.5-10.1); Chloride, Blood 101 mmol/L (98-108); Creatinine, Blood 1.52 mg/dL (0.60-1.20); Globulin, Blood 4.8 g/dL (2.2-4.0); Glomerular Filtration Rate 50 (60-); Glucose, Blood 252 mg/dL (70-99); Potassium, Blood 4.2 mmol/L (3.5-5.5); Sodium, Blood 136 mmol/L (136-145); Total Protein, Blood 7.7 g/dL (6.4-8.2)
== END 2019-11-20 11:35 | disposition home or self-care (01) ==
PROVIDERS: Podiatrist
DX: E11.52 Type 2 diabetes mellitus with diabetic peripheral angiopathy with gangrene (principal); L97.514 Non-pressure chronic ulcer of other part of right foot with necrosis of bone; M86.171 Other acute osteomyelitis, right ankle and foot; I10 Essential (primary) hypertension; F32.9 Major depressive disorder, single episode, unspecified; E78.5 Hyperlipidemia, unspecified; Z79.01 Long term (current) use of anticoagulants; Z79.899 Other long term (current) drug therapy; Z79.02 Long term (current) use of antithrombotics/antiplatelets; Z88.8 Allergy status to other drugs, medicaments and biological substances

== ENCOUNTER 2019-11-29 00:13 | Day surgery (SDC) | payer OTHER | END 2019-11-29 14:00 | disposition home or self-care (01) | LOC: ATC 00:13 | DX: M86.179 Other acute osteomyelitis, unspecified ankle and foot (principal); I73.9 Peripheral vascular disease, unspecified; I10 Essential (primary) hypertension; E11.9 Type 2 diabetes mellitus without complications; F32.9 Major depressive disorder, single episode, unspecified; E78.5 Hyperlipidemia, unspecified; Z79.01 Long term (current) use of anticoagulants; Z79.02 Long term (current) use of antithrombotics/antiplatelets; Z79.899 Other long term (current) drug therapy; Z88.8 Allergy status to other drugs, medicaments and biological substances | CPT/HCPCS: 99211; J1335 ==

== ENCOUNTER 2019-12-06 10:42 | Day surgery (SDC) | payer OTHER | END 2019-12-06 13:45 | disposition home or self-care (01) | LOC: ATC 10:42 | DX: E11.52 Type 2 diabetes mellitus with diabetic peripheral angiopathy with gangrene (principal); M86.171 Other acute osteomyelitis, right ankle and foot; E11.621 Type 2 diabetes mellitus with foot ulcer; L97.514 Non-pressure chronic ulcer of other part of right foot with necrosis of bone; I10 Essential (primary) hypertension; F32.9 Major depressive disorder, single episode, unspecified; E78.5 Hyperlipidemia, unspecified; Z79.01 Long term (current) use of anticoagulants; Z79.899 Other long term (current) drug therapy; Z79.02 Long term (current) use of antithrombotics/antiplatelets; Z88.8 Allergy status to other drugs, medicaments and biological substances | CPT/HCPCS: 99211 ==

== ENCOUNTER 2019-12-15 11:33 | Emergency (ER) | payer OTHER ==
[~2019-12-15] VITALS: Ht 177.8 cm; Wt 85.3 kg
== END 2019-12-15 11:51 | disposition home or self-care (01) ==
LOC: ER 11:33
DX: L25.9 Unspecified contact dermatitis, unspecified cause (principal); E11.42 Type 2 diabetes mellitus with diabetic polyneuropathy; I25.10 Atherosclerotic heart disease of native coronary artery without angina pectoris; I11.0 Hypertensive heart disease with heart failure; I50.9 Heart failure, unspecified; E78.5 Hyperlipidemia, unspecified; F17.210 Nicotine dependence, cigarettes, uncomplicated; Z88.0 Allergy status to penicillin; Z88.8 Allergy status to other drugs, medicaments and biological substances; Z79.899 Other long term (current) drug therapy; Z79.4 Long term (current) use of insulin; Z79.01 Long term (current) use of anticoagulants
CPT/HCPCS: 99282

== ENCOUNTER 2020-03-25 00:47 | Inpatient (IN) | payer OTHER ==
[~2020-03-25] VITALS: Ht 175.3 cm; Wt 84.9 kg
[2020-03-25 01:33] LABS: BASOPHILS ABSOLUTE AUTO 0.04 K/mm3 (0.00-0.23); BASOPHILS PERCENT AUTO 0 % (0-2); EOSINOPHILS ABSOLUTE AUTO 0.11 K/mm3 (0.00-0.68); EOSINOPHILS PERCENT AUTO 1 % (0-6); Hematocrit 45.8 % (37.0-53.0); Hemoglobin 14.3 g/dL (13.5-17.5); IMMATURE GRAN ABSOLUTE AUTO 0.05 K/mm3 (0.00-0.10); IMMATURE GRAN PERCENT AUTO 0 % (0-1); LYMPHOCYTES PERCENT AUTO 17 % (21-46); MONOCYTES ABSOLUTE AUTO 0.88 K/mm3 (0.16-1.47); MONOCYTES PERCENT AUTO 7 % (4-13); Mean Corpuscular HGB 26.7 pg (26.0-34.0); Mean Corpuscular HGB Conc 31.2 g/dL (31.5-36.5); Mean Corpuscular Volume 86 fL (80-100); Mean Platelet Volume 11.6 fL (9.1-12.4); NEUTROPHILS ABSOLUTE AUTO 9.26 K/mm3 (1.96-9.15); NEUTROPHILS PERCENT AUTO 74 % (41-73); NRBC ABSOLUTE 0.12 K/mm3 (0.00-0.02); Platelet Count 312 K/mm3 (150-400); RDW Coefficient Variation 14.5 % (11.7-14.2); RDW Standard Deviation 45.3 fL (35.1-46.3); Red Blood Cell Count 5.35 M/mm3 (4.30-5.90); White Blood Cell Count 12.44 K/mm3 (4.00-11.30)
[2020-03-25 01:36] LABS: Bun/Creatinine Ratio 16.3 (12.0-20.0); Calcium, Blood 8.2 mg/dL (8.5-10.1); Creatinine, Blood 3.07 mg/dL (0.60-1.20); Potassium, Blood 5.1 mmol/L (3.5-5.5)
[2020-03-25] MEDS ORDERED: ONDA4 PO (01:46)
[2020-03-25] MEDS ORDERED: REPATHA SU140 MG/1 M SC (01:48)
[2020-03-25] MEDS ORDERED: BASAGLAR K100 UNIT/1 SC (01:52)
[2020-03-25 02:22] LABS: Troponin I 0.818 ng/mL (0.000-0.040)
--- NOTE | 2020-03-25 06:50 | NUR ---
SHIFT SUMMARY AOX4. TELE NSR @61. VSS. BP SLIGHTLY LOW @100/62, 60MG IV LASIX WAS ORDERED, CONFIRMED c DR GALINDO & HE STATED TO GIVE MED ANYWAYS, RECHECKED BP & IT WAS 106/65. DENIES PAIN. REPORTS DYSPNEA @REST. SPO2 >90% ON RA. E/U RESPIRATIONS. GENERALIZED EDEMA T/O BODY. +1 EDEMA BLE. CBG 470 UPON ARRIVAL TO FLOOR, GAVE 20U LANTUS PER ORDERS. PT DIAPHORETIC & CLAMMY. REPORTS FEELING NAUSEOUS, GAVE ZOFRAN PER ORDERS. CALL LIGHT IN REACH.
[2020-03-25 09:51] LABS: BASOPHILS ABSOLUTE AUTO 0.04 K/mm3 (0.00-0.23); BASOPHILS PERCENT AUTO 0 % (0-2); EOSINOPHILS ABSOLUTE AUTO 0.08 K/mm3 (0.00-0.68); EOSINOPHILS PERCENT AUTO 1 % (0-6); Hematocrit 47.4 % (37.0-53.0); Hemoglobin 14.8 g/dL (13.5-17.5); IMMATURE GRAN ABSOLUTE AUTO 0.05 K/mm3 (0.00-0.10); IMMATURE GRAN PERCENT AUTO 0 % (0-1); LYMPHOCYTES ABSOLUTE AUTO 1.84 K/mm3 (0.84-5.20); LYMPHOCYTES PERCENT AUTO 15 % (21-46); MONOCYTES ABSOLUTE AUTO 0.81 K/mm3 (0.16-1.47); MONOCYTES PERCENT AUTO 6 % (4-13); Mean Corpuscular HGB 26.4 pg (26.0-34.0); Mean Corpuscular HGB Conc 31.2 g/dL (31.5-36.5); Mean Corpuscular Volume 85 fL (80-100); Mean Platelet Volume 11.9 fL (9.1-12.4); NEUTROPHILS ABSOLUTE AUTO 9.75 K/mm3 (1.96-9.15); NEUTROPHILS PERCENT AUTO 78 % (41-73); NRBC ABSOLUTE 0.13 K/mm3 (0.00-0.02); Platelet Count 325 K/mm3 (150-400); RDW Coefficient Variation 14.5 % (11.7-14.2); RDW Standard Deviation 44.6 fL (35.1-46.3); White Blood Cell Count 12.57 K/mm3 (4.00-11.30)
[2020-03-25 10:26] LABS: Albumin, Blood 2.3 g/dL (3.4-5.0); Albumin/Globulin Ratio 0.5 (0.8-1.8); Bilirubin, Total 1.1 mg/dL (0.1-1.0); Calcium, Blood 8.1 mg/dL (8.5-10.1); Creatinine, Blood 3.37 mg/dL (0.60-1.20); Globulin, Blood 4.4 g/dL (2.2-4.0); Total Protein, Blood 6.7 g/dL (6.4-8.2); Troponin I 0.822 ng/mL (0.000-0.040)
--- NOTE | 2020-03-25 12:46 | NUR ---
PHYSICIAN NOTIFIED/BP CALLED PHYSICIAN TO NOTIFY ABOUT HYPOTENSION, BP 100/69 AND BLADDER SCAN VOLUME OF 320 ML. PT HAS NOT VOIDED THIS SHIFT. PHYSICIAN REQUESTS PT TRANSFER TO PCU.
--- NOTE | 2020-03-25 15:16 | NUR ---
PT TRANSFER THIS RN TRANSFERRED PT TO PCU PER ORDERS. THIS RN GAVE BEDSIDE REPORT TO YAEL SHAY. BELONGINGS SENT WITH PT.
--- NOTE | 2020-03-25 15:51 | NUR ---
Call from Dr. Pascual, regarding gastroenterology consultation request. will be here to see the patient this evening. Tech is here to do a complete abdominal ultrasound at this time. Echocardiogram tech waiting in the wings to do echo next. Pt has been unable to void, so he will have straight cath done when ultrasound is completed.
[2020-03-25 15:58] LABS: Adenovirus Not Detected (NOT DETECT); Bordetella pertussis Not Detected (NOT DETECT); Chlamydophila pneumoniae Not Detected (NOT DETECT); Coronavirus 229E Not Detected (NOT DETECT); Coronavirus HKU1 Not Detected (NOT DETECT); Coronavirus NL63 Not Detected (NOT DETECT); Coronavirus OC43 Not Detected (NOT DETECT); Human Metapneumovirus Not Detected (NOT DETECT); Human Rhinovirus/Enterovirus Detected (NOT DETECT); Influenza A/2009-H1 Not Detected (NOT DETECT); Influenza A/H1 Not Detected (NOT DETECT); Influenza A/H3 Not Detected (NOT DETECT); Influenza B Not Detected (NOT DETECT); Mycoplasma pneumoniae Not Detected (NOT DETECT); Parainfluenza Virus 1 Not Detected (NOT DETECT); Parainfluenza Virus 2 Not Detected (NOT DETECT); Parainfluenza Virus 3 Not Detected (NOT DETECT); Parainfluenza Virus 4 Not Detected (NOT DETECT); Respiratory Syncytial Virus Not Detected (NOT DETECT); SARS-Cov-2 (COVID-19), BioFire Not Detected (NOT DETECT)
[2020-03-25 16:09] LABS: Troponin I 0.941 ng/mL (0.000-0.040)
--- NOTE | 2020-03-25 16:30 | NUR ---
Abdominal ultrasound was completed, and the pt has not yet been able to void, so straight catheterization was done. Pt states he usually does not have any problem voiding, but occasionally does have trouble "starting a stream". diesel automotive technician noted 302 cc urine in the bladder; 440 cc dark sylwia urine was evacuated. Pt tolerated this very well. Dr. Borges here now to see the patient. Echocardiogram tech states she will return later for echo.
[2020-03-25 16:33] LABS: Source, Urine Clean Catch
[2020-03-25 16:38] LABS: Appearance, Urine Hazy (Clear); Blood, Urine 1+ (Neg); Color, Urine Amber (P-Yellow); Glucose Qualitative, Urine 4+ (Neg); Ketones, Urine Neg (Neg); Leukocyte Esterase, Urine 1+ (Neg); Nitrite, Urine Neg (Neg); Protein, Urine 4+ (Neg); Specific Gravity, Urine 1.025 (1.003-1.022); Urobilinogen, Urine 2+ (Normal)
[2020-03-25 16:50] LABS: Bilirubin, Urine 2+ (Neg)
[2020-03-25 16:53] LABS: Amorphous Mod (0-Heavy)
[2020-03-25 16:54] LABS: Red Blood Cells, Urine 0-2 /hpf (0-2); White Blood Cells, Urine 0-2 /hpf (0-5)
[2020-03-25 16:57] LABS: Hyaline Casts 0-2 /lpf (0-2)
[2020-03-25 16:58] LABS: Bacteria Few /hpf; Squamous Epithelial Cells Few /hpf (Few)
[2020-03-25 17:05] LABS: Albumin, Blood 2.2 g/dL (3.4-5.0); Anion Gap 14 mmol/L (6-16); Blood Urea Nitrogen 57 mg/dL (8-24); Bun/Creatinine Ratio 16.9 (12.0-20.0); CO2, Blood 20 mmol/L (21-32); Calcium, Blood 8.2 mg/dL (8.5-10.1); Chloride, Blood 99 mmol/L (98-108); Creatinine, Blood 3.38 mg/dL (0.60-1.20); Glomerular Filtration Rate 20 (60-); Glucose, Blood 260 mg/dL (70-99); Phosphorus, Blood 5.9 mg/dL (2.5-4.9); Potassium, Blood 4.7 mmol/L (3.5-5.5); Sodium, Blood 133 mmol/L (136-145)
--- NOTE | 2020-03-25 17:05 | NUR ---
U tox added on to urine sent for UA. Echocardiogram in progress at this time.
[2020-03-25 17:54] LABS: Troponin I 0.874 ng/mL (0.000-0.040)
--- NOTE | 2020-03-25 18:10 | NUR ---
Advanced Directive discussed. Educated pt and dtr on benefits and purpose of ACP. AD completed--signed and notarized. Pt would like to be allowed a peaceful "If there's no hope" of meaningful recovery. His dtr is EUGENE. Copies made and given to dtr. One copy placed in chart. Pt appears relaxed, making little jokes. Dtr is tearful and responded well to comfort. I will remain available.
[2020-03-25 18:28] LABS: U Amphetamine Screen DETECTED; U Barbituate Screen Not Detected; U Benzodiazapine Screen Not Detected; U Cannabinoids Screen DETECTED; U Cocaine Screen Not Detected; U Methamphetamine Screen DETECTED; U Opiates Screen Not Detected
[2020-03-25 18:29] LABS: U Buprenorphine Screen Not Detected; U Methadone Screen Not Detected; U Oxycodone Screen Not Detected; U Phencyclidine Screen Not Detected; U Propoxyphene Screen Not Detected
--- NOTE | 2020-03-25 18:45 | NUR ---
PT TRANSFERED TO ICU 15 FROM PCU. PT IS A/O X4. DENIES CP OR PRESSURE. NO SOB OR N/V. MAX TRANSFER TO BED WITH SLIDER SHEET. DAUGHTER ACCOMPANIES PT. DR. YOUNG WAS CONSULTED FOR POSSIBLE LINE PLACEMENT FOR DOBUTAMINE GTT. WAITING FOR LAB TO DRAW PTT FOR HEPARIN ORDERS. NO SIGN OF DISTRESS AT THE MOMENT. WILL REPORT TO ONCOMING RN.
--- NOTE | 2020-03-25 19:07 | NUR ---
1830 Telephone report was given to YAEL Bustamante, and the pt was transferred to ICU 15.
[2020-03-25 19:42] LABS: International Normalized Ratio 1.48; Prothrombin Time Results 15.5 Sec (9.7-11.5)
--- NOTE | 2020-03-25 20:00 | NUR ---
ASSUMED CARE OF PT AT 1900. REPORT RECEIVED AT BEDSIDE. PT PRESENTS IN BED. ALERT AND ORIENTED. PLEASANT AND COOPERATIVE WITH CARE AND ASSESSMENT. PT HAS NO COMPLAINTS OF CHEST PAIN OR PRESSURE. DR KING IN ROOM WITH PT AND DAUGHTER. EXPLAINS TO PT AND HIS DAUGHTER HEMODYNAMICS OF HIS HEART AND CLOTS WITHIN. TREATMENT PLAN EXPLAINED TO PT BY DR KING. PT HAS DOBUTAMINE BEGUN AT 2.5 MCG/KG/MIN. WILL NOT INCREASE DOBUTAMINE RATE PER DR KING. PTT DRAWN FOR HEPARIN DRIP. AWAITING ORDERS PER PHARMACY. WILL CONTINUE TO MONITOR. WILL REVIEW CHART AND PLAN OF CARE FOR THIS PT.
--- NOTE | 2020-03-25 23:33 | NUR ---
HAVE STARTED 18G BY 10CM POWERGLIDE IN LEFT UPPER ARM. PT TOLERATES THIS WELL. HEPARIN INFUSION CONTINUES PER PHARMACY. DOBUTAMINE CONTINUES AT 2.5 MCG'S. PT'S DAUGHTER HAS GONE HOME FOR THE NIGHT. PT CURRENTLY RESTING IN BED. STATES HE HAS NOT BEEN ABLE TO SLEEP WELL LATELY. PT ENCOURAGED TO DISCUSS HIS FEELINGS CONCERNING POOR PROGNOSIS THAT WAS REVEALED BY DR KING. WILL REMAIN AVAILABLE TO TO PT IF HE CHOOSES.
--- NOTE | 2020-03-26 00:53 | NUR ---
PT NOTED TO HAVE A SLEEP APNEIC TYPE RESPIRATORY PATTERN. OXYGEN SATURATIONS WOULD DROP TO LOW 80 %'S AND QUICKLY RETURNS TO > [address] 2 L/M OXYGEN TO PREVENT SATURATIONS DROPPING DRAMATICALLY. THIS HAS BEEN DONE WITH GOOD RESULTS.
--- NOTE | 2020-03-26 03:49 | NUR ---
PT AWAKENS EASILY FOR ASSESSMENT AND BLOOD DRAW FROM POWERGLIDE. PT DENIES COMPLAINTS OF CHEST PAIN OR PRESSURE. NO DYSPNEA. HAS BEEN ABLE TO REST SOME. EARLIER HAD AWOKE TO BEING INCONTINENT TO URINE. WAS ABLE TO VOID 725 AT ONE TIME POST INCONTINENCE. NO FURTHER INCONTINENCE TO NOTE. WILL CONTINUE TO MONITOR PT. PT MAINTAINS MAP > 60.
[2020-03-26 04:08] LABS: BASOPHILS ABSOLUTE AUTO 0.05 K/mm3 (0.00-0.23); BASOPHILS PERCENT AUTO 0 % (0-2); EOSINOPHILS ABSOLUTE AUTO 0.16 K/mm3 (0.00-0.68); EOSINOPHILS PERCENT AUTO 1 % (0-6); Hemoglobin 12.8 g/dL (13.5-17.5); IMMATURE GRAN ABSOLUTE AUTO 0.03 K/mm3 (0.00-0.10); IMMATURE GRAN PERCENT AUTO 0 % (0-1); LYMPHOCYTES ABSOLUTE AUTO 1.54 K/mm3 (0.84-5.20); LYMPHOCYTES PERCENT AUTO 14 % (21-46); MONOCYTES ABSOLUTE AUTO 0.61 K/mm3 (0.16-1.47); MONOCYTES PERCENT AUTO 5 % (4-13); Mean Corpuscular HGB 26.3 pg (26.0-34.0); Mean Corpuscular Volume 82 fL (80-100); Mean Platelet Volume 11.4 fL (9.1-12.4); NEUTROPHILS ABSOLUTE AUTO 8.83 K/mm3 (1.96-9.15); NEUTROPHILS PERCENT AUTO 79 % (41-73); NRBC ABSOLUTE 0.05 K/mm3 (0.00-0.02); NRBC Auto 0.4 /100 WBC (0.0-0.2); Platelet Count 263 K/mm3 (150-400); RDW Coefficient Variation 14.4 % (11.7-14.2); RDW Standard Deviation 43.5 fL (35.1-46.3); Red Blood Cell Count 4.86 M/mm3 (4.30-5.90); White Blood Cell Count 11.22 K/mm3 (4.00-11.30)
[2020-03-26 04:51] LABS: Alanine Aminotransfer (ALT/SGP 856 U/L (12-78); Albumin/Globulin Ratio 0.6 (0.8-1.8); Alk Phos 354 U/L (50-136); Anion Gap 9 mmol/L (6-16); Bilirubin, Total 0.8 mg/dL (0.1-1.0); Blood Urea Nitrogen 59 mg/dL (8-24); Bun/Creatinine Ratio 18.9 (12.0-20.0); CO2, Blood 26 mmol/L (21-32); Calcium, Blood 7.9 mg/dL (8.5-10.1); Chloride, Blood 98 mmol/L (98-108); Creatinine, Blood 3.12 mg/dL (0.60-1.20); Globulin, Blood 3.6 g/dL (2.2-4.0); Glomerular Filtration Rate 22 (60-); Glucose, Blood 96 mg/dL (70-99); Phosphorus, Blood 4.8 mg/dL (2.5-4.9); Potassium, Blood 3.4 mmol/L (3.5-5.5); Sodium, Blood 133 mmol/L (136-145); Total Protein, Blood 5.6 g/dL (6.4-8.2)
[2020-03-26 04:59] LABS: Aspartate Aminotrans (AST/SGOT 1165 U/L (12-37)
--- NOTE | 2020-03-26 06:40 | NUR ---
PT HAS NOT HAD ANY COMPLAINTS OF CHEST PAIN OR PRESSURE. NO COMPLAINTS OF DYSPNEA. PT VOIDS Q.S. HAS BEEN ABLE TO MOVE ABOUT BED ON HIS OWN. HEPARIN AT 14/UNITS PER KG/HOUR DOBUTAMINE 2.5 MCG/KG/MIN WILL CONTINUE TO MONITOR PT, AND WILL REPORT OFF TO ONCOMING RN.
--- NOTE | 2020-03-26 09:54 | NUR ---
AM NOTE... ASSUMED CARE OF PT APROX 0700, PT IS A&Ox4 AND CURRENTLY ON BEDREST. PT DENIES ANY CHEST PAIN/PRESSURE N/V OR SOB AT THIS TIME. PT'S BP STABLE WITH MAPS >65. PT IS ON DOBUTAMINE GTT RUNNING AT 2.5MCG/KG/MIN NO TITRATION PER DR. KING. PT HAS HEPARIN GTT RUNNING AT 14U/KG/HR PER ORDERS. PT IS RUNNING IN SR W/PACs AND PVCs IN THE 80'S-90'S. PT HAS GENERALIZED 2+ EDEMA, BUE AND BLE COOL TO TOUCH, CAP REFILL <3 SECONDS. PEDAL PULSES FAINT. PT'S TROPONINS TRENDING DOWN. CALL LIGHT IN REACH WILL CONTINUE TO MONTIOR.
[2020-03-26 17:15] LABS: Albumin, Blood 1.9 g/dL (3.4-5.0); Anion Gap 7 mmol/L (6-16); Blood Urea Nitrogen 54 mg/dL (8-24); Bun/Creatinine Ratio 22.4 (12.0-20.0); CO2, Blood 29 mmol/L (21-32); Calcium, Blood 8.4 mg/dL (8.5-10.1); Chloride, Blood 101 mmol/L (98-108); Creatinine, Blood 2.41 mg/dL (0.60-1.20); Glomerular Filtration Rate 29 (60-); Glucose, Blood 116 mg/dL (70-99); Magnesium, Blood 2.1 mg/dL (1.6-2.4); Phosphorus, Blood 3.9 mg/dL (2.5-4.9); Potassium, Blood 3.6 mmol/L (3.5-5.5); Sodium, Blood 137 mmol/L (136-145)
--- NOTE | 2020-03-26 17:56 | NUR ---
I provided supportive visit to Imer and his dtr, Gena at bedside. When asked how he is dealing with facing end-of-life, he was rather casual saying. "They've been telling me I could at any time for years now. I feel fine." Gena was tearful and appeared to benefit from the opportunity to express her fears and concerns. She responded well to director of counseling and comfort. They are non-samaritan, but we have an easy rapport. I will remain available.
--- NOTE | 2020-03-26 18:44 | NUR ---
SHIFT SUMMARY.... NO ACUTE NEGATIVE CHANGES NOTED THIS SHIFT. PT'S VS HAVE BEEN STABLE. PT CONTINUES TO BE ON DOBUTAMINE AT 2.5MCG/KG/MIN WITH BP AND HEART RATE STABLE. PT DENIES ANY CHEST PAIN/PRESSURE N/V OR SOB. HEPARING IS RUNNING AT 16U/KG PER ORDERS. PICC LINE WAS PLACED IN THE ADI THIS SHIFT. PT WAS GIVEN BEDBATH AND LINEN CHANGE D/T INCONT/SPILLING OF THE URINAL. PT HAS NOT HAD A BM THIS SHIFT. PT'S DAUGHTER HAS BEEN AT THE BEDSIDE OFF AND ON T/O THE DAY. BLADDER SCAN WAS DONE, PVR WAS 30MLS. CALL LIGHT IN REACH WILL CONTINUE TO MONITOR UNTIL REPORT IS GIVEN TO ONCOMING RN.
--- NOTE | 2020-03-26 20:00 | NUR ---
ASSUMED CARE OF PT AT 1915. REPORT RECEIVED AT BEDSIDE. PT PRESENTS IN BED. ALERT AND ORIENTED. PLEASANT AND COOPERATIVE WITH CARE AND ASSESSMENT. DENIES CHEST PAIN OR PRESSURE. DENIES ANY COMPLAINTS WITH DYSURIA THIS DAY. DAUGHTER IN ROOM. WILL REVIEW CHART AND PLAN OF CARE FOR THIS PT.
--- NOTE | 2020-03-27 01:00 | NUR ---
PT CONTINUES ON HEPARIN DRIP AT 16 UNITS/KG/HOUR. NO S/S BLEEDING. PTT'S DRAWN THROUGH PICC LINE WITHOUT ISSUES. PT CONTINUES WITHOUT COMPLAINTS. DOBUTAMINE MAINTAINS AT 2.5 MCG'S. PT VOIDS Q.S. NO COMPLAINTS OF CHEST PAIN OR PRESSURE. NO COMPLAINTS OF DYSPNEA.
[2020-03-27 05:08] LABS: BASOPHILS ABSOLUTE AUTO 0.03 K/mm3 (0.00-0.23); BASOPHILS PERCENT AUTO 0 % (0-2); EOSINOPHILS ABSOLUTE AUTO 0.15 K/mm3 (0.00-0.68); EOSINOPHILS PERCENT AUTO 2 % (0-6); Hematocrit 37.5 % (37.0-53.0); IMMATURE GRAN ABSOLUTE AUTO 0.03 K/mm3 (0.00-0.10); IMMATURE GRAN PERCENT AUTO 0 % (0-1); LYMPHOCYTES ABSOLUTE AUTO 1.46 K/mm3 (0.84-5.20); LYMPHOCYTES PERCENT AUTO 14 % (21-46); MONOCYTES ABSOLUTE AUTO 0.63 K/mm3 (0.16-1.47); MONOCYTES PERCENT AUTO 6 % (4-13); Mean Corpuscular HGB 26.3 pg (26.0-34.0); Mean Corpuscular Volume 82 fL (80-100); Mean Platelet Volume 11.1 fL (9.1-12.4); NEUTROPHILS ABSOLUTE AUTO 7.94 K/mm3 (1.96-9.15); NEUTROPHILS PERCENT AUTO 77 % (41-73); NRBC ABSOLUTE 0.03 K/mm3 (0.00-0.02); NRBC Auto 0.3 /100 WBC (0.0-0.2); Platelet Count 254 K/mm3 (150-400); RDW Coefficient Variation 14.6 % (11.7-14.2); RDW Standard Deviation 43.7 fL (35.1-46.3); Red Blood Cell Count 4.57 M/mm3 (4.30-5.90); White Blood Cell Count 10.24 K/mm3 (4.00-11.30)
[2020-03-27 05:29] LABS: Albumin, Blood 1.9 g/dL (3.4-5.0); Albumin/Globulin Ratio 0.5 (0.8-1.8); Bilirubin, Total 0.7 mg/dL (0.1-1.0); Bun/Creatinine Ratio 20.9 (12.0-20.0); Calcium, Blood 7.9 mg/dL (8.5-10.1); Creatinine, Blood 2.3 mg/dL (0.60-1.20); Globulin, Blood 3.6 g/dL (2.2-4.0); Potassium, Blood 3.5 mmol/L (3.5-5.5); Total Protein, Blood 5.5 g/dL (6.4-8.2)
--- NOTE | 2020-03-27 05:47 | NUR ---
PT HAS BEEN ABLE TO REST THIS NIGHT. DOBUTAMINE CONTINUES AT 2.5 MCG'S/KG/MIN. BLOOD PRESSURES MAINTAIN WITH MAP > 60. NO COMPLAINTS CHEST PAIN OR PRESSURE. NO COMPLAINTS OF DYSPNEA. HAVE NEEDED TO USE 2 L/M O2 WHILE PT SLEEPING SECONDARY SLEEP APNEA TYPE RESPIRATIONS WITH DESATURATIONS < 90 PERCENT. WITH LOW FLOW O2, PT MAINTAINS > 90 PERCENT SATURATIONS. PT HAS BEEN ABLE TO VOID > 2000 ML THIS NIGHT. TEACHING DONE ON FLUID RETENTION VERSUS CARDIAC ABILITY TO HAVE ENOUGH OUTPUT FOR ADEQUATE PERFUSION. PT VERBALIZES UNDERSTANDING. WILL CONTINUE TO MONITOR PT, AND WILL REPORT OFF TO ONCOMING RN.
--- NOTE | 2020-03-27 06:59 | NUR ---
DR KING IN TO SEE PT THIS MORNING. ORDERS RECEIVED.
[2020-03-27 07:18] LABS: CHOL/HDL RATIO 3.1; Cholesterol 109 mg/dL (50-200); HDL Cholesterol 35 mg/dL (>39); LDL/HDL RATIO 1.7; Low Density Lipoprotein Chol 58 mg/dL (0-110); Triglycerides 80 mg/dL (30-160); Very Low Density Lipoprot Chol 16 mg/dL (6-32)
--- NOTE | 2020-03-27 07:30 | NUR ---
PIV D/C'D IN RT AC, PER ROUTATION AND PT HAS PICC LINE IN ADI.
--- NOTE | 2020-03-27 14:23 | NUR ---
PT UPDATE: UPON ROUNDING ON PT. PT REPORTS CRAMPING/TIGHTNESS IN LE'S, DESPITE DIURESING WELL WITH IV LASIX THIS SHIFT. PT WAS GIVEN ADD'L POTASSIUM THIS AM FOR BORDERLINE LOW POTASSIUM LEVELS. PT SET UP WITH K-PAD TO TRY FOR LOWER EXTREMITY DISCOMFORT. INFORMED PT TO LE THIS RN KNOW, IF THIS WAS NOT HELPFUL IN REDUCING DISCOMFORT.
--- NOTE | 2020-03-27 15:16 | NUR ---
LE DISCOMFORT CONTINUED: PT REPORTS HEAT HAS YET TO HELP WITH LE DISCOMFORT/CRAMPING. CALLED DR COOMBS TO REPORT DISCOMFORT AND DISCUSSED TODAYS ELECTROLYTES. PENDING TYLENOL ORDER. WILL RECHECK ELECTROLYTES IN THE AM PER DR COOMBS. AWAITING ORDERS.
--- NOTE | 2020-03-27 16:03 | NUR ---
PT UPDATE: PT'S CBG 95, PT REQUESTED SNACK. ORDER PLACED AND PAPER SENT FOR RN APPROVAL FOR SNACK TO BE PROVIDED TO PT.
--- NOTE | 2020-03-27 16:36 | NUR ---
SHIFT SUMMARY: PT IS ALERT AND ORIENTED X 3. PT REMAINS ON SET RATE DOBUTAMINE 2.5MCG/KG/MIN THROUGH PICC LINE IN THE LT UA AND STARTED ON NEW CARDIAC MEDS, MANAGED BY FERNANDO. BP REMAINED STABLE T/O SHIFT. HEPARIN GTT MANAGED BY PHARMACY REMAINS AT 16UNITS/KG/HR. PT MOSTLY INDEPENDENT IN BED. LUNGS REMAIN CLEAR T/O SHIFT. SPO2 >90% ON RA. HR SLIGHTLY IRREGULAR, SR WITH PAC/PVC'S-90'S RANGE. EDEMA IMPROVING IN THE LE'S BILATERALLY, HOWEVER, PT'S MAIN C/O THIS SHIFT IS CRAMPING/DISCOMFORT IN BILATERAL LE'S. PT PROVIDED WITH HEAT AND TYLENOL FOR DISCOMFORT. PT HAS GOOD APPETITE. CBG'S AC/HS WITH S/S INSULIN COVERAGE. NO BM THIS SHIFT. DISCUSSED WITH PT HE MAY NEED BOWEL CARE REGIMEN STARTED HE HAS NOT HAD A BM IN 2-3 DAYS.
--- NOTE | 2020-03-27 19:15 | NUR ---
REPORTED OFF TO YAEL HANSEN WHOM IS NOW ASSUMING CARE OF THIS PT.
--- NOTE | 2020-03-27 20:00 | NUR ---
ASSUMED CARE OF PT AT 1915. REPORT RECEIVED AT BEDSIDE. PT PRESENTS IN BED. ALERT AND ORIENTED. PLEASANT AND COOPERATIVE WITH CARE AND ASSESSMENT. DENIES CHEST PAIN OR PRESSURE. HAS FAMILY MEMBER IN ROOM. PT CONTINUES ON DOBUTAMINE DRIP AT 2.5 MCG'S/KG/MIN HEPARIN DRIP CONTINUES. WILL REVIEW CHART AND PLAN OF CARE FOR THIS PT.
--- NOTE | 2020-03-28 | NUR ---
CALL MADE TO DR KNOX TO INFORM OF POSITIVE BLOOD CULTURE WITH GRAM POSITIVE COCCI IN CLUSTER. PT ON LEVAQUIN AT THIS TIME. NO ORDERS RECEIVED. PT CONTINUES TO DIURESE WELL. NO COMPLAINTS VOICED BY PT AT THIS TIME. DOES HAVE K PAD FOR HIS LOWER EXTREMITY THAT HE STATES IS AFFECTIVE FOR HIS DISCOMFORT. WILL CONTINUE TO MONITOR PT.
[2020-03-28 06:00] LABS: BASOPHILS ABSOLUTE AUTO 0.02 K/mm3 (0.00-0.23); BASOPHILS PERCENT AUTO 0 % (0-2); EOSINOPHILS ABSOLUTE AUTO 0.13 K/mm3 (0.00-0.68); EOSINOPHILS PERCENT AUTO 2 % (0-6); Hematocrit 36.6 % (37.0-53.0); Hemoglobin 11.5 g/dL (13.5-17.5); IMMATURE GRAN ABSOLUTE AUTO 0.04 K/mm3 (0.00-0.10); IMMATURE GRAN PERCENT AUTO 1 % (0-1); LYMPHOCYTES ABSOLUTE AUTO 1.45 K/mm3 (0.84-5.20); LYMPHOCYTES PERCENT AUTO 18 % (21-46); MONOCYTES ABSOLUTE AUTO 0.57 K/mm3 (0.16-1.47); MONOCYTES PERCENT AUTO 7 % (4-13); Mean Corpuscular HGB 26.1 pg (26.0-34.0); Mean Corpuscular HGB Conc 31.4 g/dL (31.5-36.5); Mean Corpuscular Volume 83 fL (80-100); Mean Platelet Volume 10.9 fL (9.1-12.4); NEUTROPHILS ABSOLUTE AUTO 5.99 K/mm3 (1.96-9.15); NEUTROPHILS PERCENT AUTO 73 % (41-73); NRBC ABSOLUTE 0.02 K/mm3 (0.00-0.02); NRBC Auto 0.2 /100 WBC (0.0-0.2); Platelet Count 246 K/mm3 (150-400); RDW Coefficient Variation 14.6 % (11.7-14.2); RDW Standard Deviation 44.6 fL (35.1-46.3); Red Blood Cell Count 4.41 M/mm3 (4.30-5.90)
[2020-03-28 06:16] LABS: Bun/Creatinine Ratio 24.4 (12.0-20.0); Calcium, Blood 8.2 mg/dL (8.5-10.1); Creatinine, Blood 1.76 mg/dL (0.60-1.20); Phosphorus, Blood 3.3 mg/dL (2.5-4.9)
[2020-03-28 14:17] LABS: International Normalized Ratio 1.14; Prothrombin Time Results 12.1 Sec (9.7-11.5)
--- NOTE | 2020-03-28 16:10 | NUR ---
DOBUTAMINE DRIP IS STOPPED PER TELEPHONE ORDER FROM DR KING, PT IS UPDATED
--- NOTE | 2020-03-28 17:33 | NUR ---
SHIFT SUMMARY PT HAS BEEN RESTING WELL IN BED T/O THE ENTIRE SHIFT, FREE OF PAIN OR DISTRESS. VSS. DR KING IS UPDATED AND PT'S DOBUTAMINE DRIP WAS STOPPED. DR JUAREZ WILL FOLLOW UP WITH PT TOMORROW FOR POSSIBLE STEP DOWN TO PCU. FAMILY IS ALSO UPDATED ON PLAN. NO OTHER CHANGES TO NOTE SINCE LAST ENTRY
--- NOTE | 2020-03-28 20:00 | NUR ---
ASSUMED PT CARE REPORT AND BEDSIDE ROUNDING WITH SALLY RN AT 1905. ASSUMED PT CARE. PT ALERT AND ORIENTED X3. PT WATCHING TV, ANSWERS QUESTIONS APPROPRIATELY. PT SHOWS ST ON MONITOR, HR 104. BP WNL. PT DENIES CP AT THIS TIME. RESP EVEN AND NON LABORED. PT SATS 97 ON RA. PT AFEBRILE. PT ABD SOFT AND NON TENDER. APPETITE GOOD. PT REPORTS PASSING GAS. UOP WNL, PT USES URINALS. SKIN C/D/I. POWERGLIDE TO LEFT UPPER ARM, DRESSING C/D/I, HEPARIN INFUSING AT 16UNITS/KG/HR. CALL LIGHT IN REACH. SEE FULL NURSING ASSESSMENT.
[2020-03-29 04:54] LABS: International Normalized Ratio 1.12; Prothrombin Time Results 11.9 Sec (9.7-11.5)
[2020-03-29 04:58] LABS: Albumin, Blood 2.1 g/dL (3.4-5.0); Anion Gap 2 mmol/L (6-16); Blood Urea Nitrogen 43 mg/dL (8-24); Bun/Creatinine Ratio 29.1 (12.0-20.0); CO2, Blood 34 mmol/L (21-32); Calcium, Blood 8.9 mg/dL (8.5-10.1); Chloride, Blood 101 mmol/L (98-108); Creatinine, Blood 1.48 mg/dL (0.60-1.20); Glomerular Filtration Rate 52 (60-); Glucose, Blood 124 mg/dL (70-99); Phosphorus, Blood 3.5 mg/dL (2.5-4.9); Sodium, Blood 137 mmol/L (136-145)
--- NOTE | 2020-03-29 05:26 | NUR ---
SHIFT SUMMARY PT HAD GREAT SHIFT. REMAINS ALERT AND ORIENTED WHEN AWAKE. PT DENIES CP/SOB. PT C/O LEG PAIN DURING NIGHT THAT WAS ALLEVIATED WITH PO TYLENOL. PT HAS PICC TO ADI WITH HEPARIN INFUSING AT 16UNITS/KG/HR, KEISHA WELL. SITE AND DRESSING C/D/I. NO ADJUSTMENTS MADE TO HEPARIN DOSE THIS AM. PT HAS HEARTY APPETITE. PT SINUS TO SINUS TACH ON THE MONITOR. PULSES PRESENT AND EQUAL. PT HAD GREAT URINE OUTPUT, USES URINAL WITH OUT ISSUE. BLOOD PRESSURES HAVE BEEN STABLE. SATS >92% ON RA, LUNG SOUNDS CLEAR. SKIN C/D/I. PT SEEMS FIT FOR PCU. WILL REPORT TO DAY SHIFT.
--- NOTE | 2020-03-29 08:47 | NUR ---
BEDSIDE REPORT TAKEN AT 0715. HEPARIN GTT INFUSING AT 16UNITS/KG/HR. PT AWAKE IN BED WATCHING TV, DENIES C/O PAIN. PT HAS GOOD APPETITE. VSS, PT W/O COMPLAINTS. PLAN, OOB TO CHAIR TOLERATED, POSSIBLE STATUS CHANGE.
--- NOTE | 2020-03-29 10:54 | NUR ---
PT RESTLESS IN BED, PT STATES HE IS ANXIOUS AND BECOMING VERY "ANTSY", HE STATES HE DOESNT KNOW HOW MUCH LONGER HE CAN "STAY IN ONE PLACE". WILL HELP PT OOB TO CHAIR IF TOLERATED, POSSIBLY TRANSFERING TO NEW ROOM MAY HELP. IMPORTANCE OF STAYING IN HOSPITAL UNTIL RELEASED BY MD ARRIETA W PT.
--- NOTE | 2020-03-29 12:09 | NUR ---
PT PCU STATUS. REPORT CALLED TO ANUM CONLEY. PT GIVEN FULL BEDBATH. SBA TO CHAIR, TOLERATING WELL; UP IN CHAIR EATING LUNCG W/O COMPLAINTS. MILD WEAKNESS, MILDLY UNBALANCED.
--- NOTE | 2020-03-29 12:49 | NUR ---
ASSUMED PATIENT CARE. PATIENT TRANSFERED FROM ER TO PCU VIA WHEELCHAIR, ABLE TO AMBULATE INDEPENDENTLY TO BED. NO SIGNS OF ACUTE DISTRESS, DENIES CHEST PAIN, WCTM.
--- NOTE | 2020-03-29 17:38 | NUR ---
PATIENT TRANSFERED FROM ICU THIS HALF OF SHIFT, DENIES CHEST PAIN. NO ACUTE EVENTS THIS HALF OF SHIFT. PATIENT ABLE TO AMBULATE WITH SBA IN ROOM TO BATHROOM. PATIENT ON ROOM AIR. COMPLAINS OF RESTLESS LEGS AND MUSCLE SPASMS. DR. COOMBS NOTIFIED, BEDTIME GABAPENTIN ORDERED. DR. JUAREZ AND DR. SHIN VISITED WITH PATIENT AT [facility]. PLAN IS TO TRANSITION OFF HEPARIN DRIP TO PO COUMADIN, BRIDGE STARTED. IV LASIX WILL BE DC'd BY DR. SHIN, IV LASIX DOSE NOT GIVEN THIS PM PER DR. SHIN INSTRUCTIONS, WILL BE STARTED ON PO LASIX TOMORROW.
--- NOTE | 2020-03-29 21:36 | NUR ---
ASSUMED CARE OF PATIENT AT APPROXIMATELY 1900 FROM SHARON Garcia RN. PATIENT'S DAUGHTER IN ROOM; DOOR CLOSED DURING BEDSIDE REPORT. PATIENT ALERT AND ORIENTED X4; PATIENT APPEARS RESTLESS; FIDGETING IN BED; PATIENT REPORTS HE FEELS WARM AND REQUEST FAN FOR BEDSIDE. PATIENT DENIES CP/PRESSURE, DIZZINESS OR NAUSEA. NSR ON TELE; OXYGEN SATURATION ABOVE 90% ON ROOM AIR. PATIENT AND PATIENT'S DAUGHTER REPORT DURING BEDSIDE REPORT THAT PATIENT HAS BEEN WEARING 2LPM VIA [place] AT [facility] AND IS SUPPOSE TO HAVE A SLEEP STUDY OUTPATIENT. PICC INFUSING HEPARIN GTT. PATIENT CURRENTLY RESTING IN BED; CALL LIGHT IN REACH; BED IN LOWEST POSISTION; BED ALARM ON; WILL CONTINUE TO MONITOR AND ASSESS UNTIL END OF SHIFT.
[2020-03-30 04:40] LABS: Hematocrit 38.5 % (37.0-53.0); Hemoglobin 11.9 g/dL (13.5-17.5)
[2020-03-30 05:03] LABS: Alanine Aminotransfer (ALT/SGP 287 U/L (12-78); Albumin, Blood 2.3 g/dL (3.4-5.0); Albumin/Globulin Ratio 0.6 (0.8-1.8); Alk Phos 287 U/L (50-136); Anion Gap 4 mmol/L (6-16); Aspartate Aminotrans (AST/SGOT 107 U/L (12-37); Bilirubin, Total 0.6 mg/dL (0.1-1.0); Blood Urea Nitrogen 49 mg/dL (8-24); Bun/Creatinine Ratio 38.3 (12.0-20.0); CO2, Blood 31 mmol/L (21-32); Calcium, Blood 9.1 mg/dL (8.5-10.1); Chloride, Blood 102 mmol/L (98-108); Creatinine, Blood 1.28 mg/dL (0.60-1.20); Globulin, Blood 4.1 g/dL (2.2-4.0); Glomerular Filtration Rate >60 (60-); Glucose, Blood 189 mg/dL (70-99); Potassium, Blood 4.1 mmol/L (3.5-5.5); Sodium, Blood 137 mmol/L (136-145); Total Protein, Blood 6.4 g/dL (6.4-8.2)
[2020-03-30 05:06] LABS: International Normalized Ratio 1.28; Prothrombin Time Results 13.5 Sec (9.7-11.5)
--- NOTE | 2020-03-30 06:51 | NUR ---
SHIFT SUMMARY: PT SLEPT THROUGH MOST OF SHIFT, NO ACUTE CHANGES FROM BASELINE ASSESSMENT. HEPRIN INCREASED PER PHARMACY PROTOCOL. WILL CONTINUE TO MONITOR
--- NOTE | 2020-03-30 07:43 | NUR ---
ASSUMING CARE OF PT, RECEIVED REPORT FROM DEBORA, RN'S. PT RESTING QUIETLY IN BED WITH BED IN LOWEST POSITION. HEPARIN INFUSING AT 17 U/KG/HR WITHOUT DIFFICULTY. CALL LIGHT WITHIN REACH.
--- NOTE | 2020-03-30 10:42 | NUR ---
DR COOMBS TO ROOM AT APPROX 1030 FOR ASSESSMENT. PT ALERT AND ANSWERING QUESTIONS, REQUESTS TO USE RESTROOM, DR COOMBS ASKS PT TO SIT IN BEDSIDE CHAIR SO SHE CAN AUSCULTATE LUNGS. UPON PT TRANSFERING TO CHAIR ACUTE CHANGE IN BEHAVIOR IS NOTED WITH RT FACIAL DROOP, PT MAKING INCOHERENT SOUNDS, PUPILS SLUGGISH RODDY, NO STRENGTH TO RIDE ARM/HAND, PT BACK TO BED USING 3 PERSON ASSIST, PT IS VERY WEAK. HEPARIN GTT STOPPED AT 1033, PHARMACY HAS BEEN NOTIFIED. STAT ORDERS PLACED, PT TO IMAGING DEPT AT THIS TIME.
[2020-03-30 11:14] LABS: Hematocrit 38.3 % (37.0-53.0); Hemoglobin 11.7 g/dL (13.5-17.5); Mean Corpuscular HGB 25.7 pg (26.0-34.0); Mean Corpuscular HGB Conc 30.5 g/dL (31.5-36.5); Mean Corpuscular Volume 84 fL (80-100); Mean Platelet Volume 10.4 fL (9.1-12.4); Platelet Count 251 K/mm3 (150-400); RDW Coefficient Variation 15.5 % (11.7-14.2); RDW Standard Deviation 47.5 fL (35.1-46.3); Red Blood Cell Count 4.55 M/mm3 (4.30-5.90); White Blood Cell Count 10.76 K/mm3 (4.00-11.30)
[2020-03-30 11:29] LABS: International Normalized Ratio 1.49; Prothrombin Time Results 15.6 Sec (9.7-11.5)
[2020-03-30 11:35] LABS: Albumin, Blood 2.2 g/dL (3.4-5.0); Anion Gap 5 mmol/L (6-16); Blood Urea Nitrogen 48 mg/dL (8-24); Bun/Creatinine Ratio 39.7 (12.0-20.0); CO2, Blood 29 mmol/L (21-32); CPK Creatine Kinase 43 U/L (39-308); Calcium, Blood 8.6 mg/dL (8.5-10.1); Chloride, Blood 104 mmol/L (98-108); Creatinine, Blood 1.21 mg/dL (0.60-1.20); Glomerular Filtration Rate >60 (60-); Glucose, Blood 210 mg/dL (70-99); Magnesium, Blood 1.9 mg/dL (1.6-2.4); Potassium, Blood 4.5 mmol/L (3.5-5.5); Sodium, Blood 138 mmol/L (136-145); Troponin I 0.395 ng/mL (0.000-0.040)
== END 2020-03-30 14:02 | disposition short-term general hospital (02) | DRG 280 ==
LOC: ER 00:47 → MEDS 00:48 → ICUW 00:48 → PCU 00:48 → MEDS 00:48 → ICUW 03:40 → MEDS 03:47 → PCU 13:17 → ICUW 18:28 → PCU 03-29 12:34
PROVIDERS: Family Medicine; Internal Medicine; Internal Medicine Cardiovascular Disease; Student in an Organized Health Care Education/Training Program; ADMIT Internal Medicine
PROC: 02HV33Z Insertion of Infusion Device into Superior Vena Cava, Percutaneous Approach (ICD-10-PCS; principal; 2020-03-26)
DX: I13.0 Hypertensive heart and chronic kidney disease with heart failure and stage 1 through stage 4 chronic kidney disease, or unspecified chronic kidney disease (principal); I63.232 Cerebral infarction due to unspecified occlusion or stenosis of left carotid arteries; I21.A1 Myocardial infarction type 2; I50.23 Acute on chronic systolic (congestive) heart failure; R57.0 Cardiogenic shock; J18.9 Pneumonia, unspecified organism; N17.9 Acute kidney failure, unspecified; E87.1 Hypo-osmolality and hyponatremia; R47.01 Aphasia; N18.3 Chronic kidney disease, stage 3 (moderate); E11.22 Type 2 diabetes mellitus with diabetic chronic kidney disease; Z79.4 Long term (current) use of insulin; I51.3 Intracardiac thrombosis, not elsewhere classified; E11.65 Type 2 diabetes mellitus with hyperglycemia; I27.20 Pulmonary hypertension, unspecified; Z66 Do not resuscitate; Z89.421 Acquired absence of other right toe(s); G47.33 Obstructive sleep apnea (adult) (pediatric); E78.5 Hyperlipidemia, unspecified; Z91.14 Patient's other noncompliance with medication regimen; F32.9 Major depressive disorder, single episode, unspecified; E03.9 Hypothyroidism, unspecified; R33.9 Retention of urine, unspecified; E87.6 Hypokalemia; B97.89 Other viral agents as the cause of diseases classified elsewhere; R29.810 Facial weakness
CPT/HCPCS: 0202U; 36415; 36569; 70450; 70496; 71045; 76700; 76857; 80048; 80053; 80061; 80069; 81001; 82550; 82947; 83036; 83605; 83735; 83880; 84100; 84145; 84443; 84450; 84460; 84484; 85014; 85018; 85025; 85027; 85610; 85730; 87040; 87086; 93005; 93010; 94760; 96365; 96366; 96372; 96374; 96375; 96376; 98960; 99285-25; A9270; A9270-GY; C1751; C8929; G0378; J1250; J1644; J1650; J1940; J1956; J2405; Q9957; Q9967; U0003